=== PATIENT | female | born 1970 | race Caucasian/White ===

== ENCOUNTER 2016-09-26 11:08 | Day surgery (SDC) | payer BC ==
--- NOTE | 2016-09-23 12:43 | P.GSHP ---
History of Present Illness H&P Date: 09/23/16 Chief Complaint: Change in bowel habits Patient seen in the office complaining of increased constipation and intermittent diarrhea. She has family history of colon cancer in her grandfather. Her last colonoscopy was 7 years ago and that was normal. Denies rectal bleeding or melena. Past Medical History Past Medical History: Hypertension, Thyroid Disorder Additional Past Medical History / Comment(s): MIGRAINES History of Any Multi-Drug Resistant Organisms: None Reported Past Surgical History: Orthopedic Surgery Additional Past Surgical History / Comment(s): RIGHT KNEE Past Psychological History: Depression Smoking Status: Current some day smoker Past Alcohol Use History: Occasional Past Drug Use History: None Reported Medications and Allergies Home Medications Medication Instructions Recorded Confirmed Type Citalopram Hydrobromide [CeleXA] 20 mg PO DAILY 02/07/14 02/07/14 History Levothyroxine Sodium [Synthroid] 75 mcg PO DAILY 02/07/14 02/07/14 History Lisinopril [Prinivil] 20 mg PO 02/07/14 02/07/14 History Allergies Allergy/AdvReac Type Severity Reaction Status Date / Time levofloxacin [From Levaquin] Allergy Unknown Verified 02/07/14 17:27 Surgical - Exam Physical exam: General: Well-developed, well-nourished HEENT: Normocephalic, sclerae nonicteric Abdomen: Nontender, nondistended Extremities: No edema Neuro: Alert and oriented Assessment and Plan (1) Change in bowel habits Narrative/Plan: Will proceed with colonoscopy on 09/26. Risks of bleeding, infection, perforation discussed. Patient understands and wishes to proceed. Status: Acute
[2016-09-25 11:28] VITALS: BMI 28.7
[~2016-09-26 11:08] MED LIST: LACTATED RINGERS 1,000 ML IV SCH
[2016-09-26 11:40] VITALS: TEMP 97.8
[2016-09-26] MEDS ORDERED: MIDAZOLAM 2 MG/2 ML VIAL ONE (12:17)
[2016-09-26] MEDS ORDERED: fentaNYL (PF) 50 MCG/ML 2 ML AMP ONE (12:17)
[2016-09-26] MEDS ORDERED: PROPOFOL 10 MG/ML 20 ML VIAL IV ONE (12:17)
--- NOTE | 2016-09-26 12:42 | P.PCN ---
Date of Procedure: 09/26/16 Preoperative Diagnosis: Postoperative Diagnosis: Procedure(s) Performed: PREOPERATIVE DIAGNOSIS: Change in bowel habits POSTOPERATIVE DIAGNOSIS: Normal exam PROCEDURE: Colonoscopy ANESTHESIA: MAC SURGEON: Roni Donohue M.D. SPECIMENS: None ENDOSCOPIC PROCEDURE: The patient was placed on the endoscopy table in the left decubitus position. The Olympus colonoscope was inserted into the anus and passed under direct visualization to the base of the cecum. The appendiceal orifice was visualized. From that point the scope was slowly withdrawn inspecting all surfaces carefully. There were no neoplastic inflammatory or polypoid lesions throughout the cecum, ascending, transverse, descending, sigmoid and rectum. There was no diverticulosis noted. Digital rectal examination was normal. The patient was taken to the recovery room in stable condition per anesthesia guidelines. RECOMMENDATIONS: Increase fiber. Follow colonoscopy in 10 years Implants: Indications for Procedure: Operative Findings: Description of Procedure:
[2016-09-26 12:59] VITALS: BP 117/80; PULSE 56; RESP 18
== END 2016-09-26 13:21 | disposition home or self-care (01) ==
LOC: ORWHC2ENDO 11:08
PROVIDERS: ATTEND Surgery
DX: R19.7 Diarrhea, unspecified (principal); K59.00 Constipation, unspecified; I10 Essential (primary) hypertension; E07.9 Disorder of thyroid, unspecified; G43.909 Migraine, unspecified, not intractable, without status migrainosus; F17.200 Nicotine dependence, unspecified, uncomplicated; F32.9 Major depressive disorder, single episode, unspecified; Z88.1 Allergy status to other antibiotic agents; Z79.899 Other long term (current) drug therapy; Z80.0 Family history of malignant neoplasm of digestive organs
CPT/HCPCS: 81025; 45378; J2250; J3010; J2704

== ENCOUNTER → 2018-08-03 | Outpatient (CLI) | payer BC ==
--- NOTE | 2018-08-04 11:53 | MM ---
Reason for exam: screening (asymptomatic). Last mammogram was performed 7 years and 8 months ago. Physical Findings: A clinical breast exam by your physician is recommended on an annual basis and results should be correlated with mammographic findings. MG Screening Mammo w CAD Bilateral CC and MLO view(s) were taken. Prior study comparison: December 13, 2010, bilateral digital screening mammo w/CAD. The breast tissue is heterogeneously dense. This may lower the sensitivity of mammography. There is no discrete abnormality. ASSESSMENT: Negative, BI-RAD 1 RECOMMENDATION: Routine screening mammogram of both breasts in 1 year.
== END | disposition home or self-care (01) ==
LOC: RADMAMWWP 16:09
PROVIDERS: ATTEND Obstetrics & Gynecology
DX: Z12.31 Encounter for screening mammogram for malignant neoplasm of breast (principal)
CPT/HCPCS: 77067

== ENCOUNTER 2019-03-03 09:55 | Emergency (ER) | payer OTHER, BC ==
[2019-03-03 09:59] VITALS: RESP 20
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
--- NOTE | 2019-03-03 12:24 | XR ---
Cervical spine HISTORY: Trauma and pain 5 views of the cervical spine Cervical vertebral bodies show preserved height, alignment, and bone mineralization. Disc spaces are maintained. Prevertebral soft tissues are normal. No evident foraminal encroachment. IMPRESSION: No acute fracture or subluxation
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
[2019-03-03] MEDS ORDERED: CYCLOBENZAPRINE 10MG STARTER 3 TAB BTL PO STA (12:32)
[2019-03-03 12:49] VITALS: BP 152/90; PULSE 64; TEMP 97.8
== END 2019-03-03 12:50 | disposition home or self-care (01) ==
LOC: EC 09:55
DX: S16.1XXA Strain of muscle, fascia and tendon at neck level, initial encounter (principal); M25.531 Pain in right wrist; M54.5 Low back pain; F32.9 Major depressive disorder, single episode, unspecified; I10 Essential (primary) hypertension; E07.9 Disorder of thyroid, unspecified; Z79.890 Hormone replacement therapy; Z79.899 Other long term (current) drug therapy; Z88.1 Allergy status to other antibiotic agents; Z98.84 Bariatric surgery status; V43.52XA Car driver injured in collision with other type car in traffic accident, initial encounter; Y92.410 Unspecified street and highway as the place of occurrence of the external cause
CPT/HCPCS: 72050; 72100; 99283

== ENCOUNTER → 2019-06-03 | Outpatient (CLI) | payer BC ==
--- NOTE | 2019-06-03 11:31 | CT ---
EXAMINATION TYPE: CT abdomen pelvis w con DATE OF EXAM: 06/03/2019 COMPARISON: HISTORY: Diverticulitis CT DLP: 795.70 mGycm Automated exposure control for dose reduction was used. CONTRAST: CT scan of the abdomen pelvis is performed with IV Contrast, patient injected with 100 ml mL of Isovu e 300. FINDINGS- LUNG BASES- No significant abnormality is appreciated. LIVER/GB- No gross abnormality is appreciated. PANCREAS- No gross abnormality is seen. SPLEEN- No gross abnormality is seen. ADRENALS- No gross abnormality is seen. KIDNEYS/BLADDER- no hydronephrosis nephrolithiasis or renal mass. BOWEL-post surgical change involving the stomach. Small hiatal hernia suspected. Bowel gas pattern no nspecific with no diagnostic evidence of obstruction LYMPH NODES- No greater than 1cm abdominal or pelvic lymph nodes areappreciated. OSSEOUS STRUCTURES-bilateral spondylolysis of L5 with grade 1 anterolisthesis and severe degenerative disc disease. Small foci of sclerotic densities involving the pelvis likely related to bone island. OTHER- aorta of normal caliber. IMPRESSION- 1. Postoperative change with no acute process.
== END | disposition home or self-care (01) ==
LOC: RADCTMAIN 09:10
PROVIDERS: ATTEND Surgery
DX: K57.32 Diverticulitis of large intestine without perforation or abscess without bleeding (principal); Z88.1 Allergy status to other antibiotic agents; Z98.890 Other specified postprocedural states
CPT/HCPCS: 74177; Q9967

== ENCOUNTER 2019-10-26 08:49 | Emergency (ER) | payer BC, OTHER ==
[2019-10-26 08:57] VITALS: RESP 18
[2019-10-26] MEDS ORDERED: IPRATROPIUM-ALBUTEROL 3 ML NEB INHALATION STA (09:09)
[2019-10-26] MEDS ORDERED: predniSONE 20 MG TAB PO STA (09:09)
[2019-10-26] MEDS ORDERED: diphenhydrAMINE 50 MG CAP PO STA (09:09)
--- NOTE | 2019-10-26 10:10 | XR ---
EXAMINATION TYPE: XR chest 2V DATE OF EXAM: 10/26/2019 COMPARISON: NONE HISTORY: Shortness of breath TECHNIQUE: Frontal and lateral views of the chest are obtained. FINDINGS: There is no focal air space opacity, pleural effusion, or pneumothorax seen. The cardiac silhouette size is within normal limits. The osseous structures are intact. Surgical clips are pres ent in the upper abdomen. IMPRESSION: No acute cardiopulmonary process.
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
[2019-10-26] MEDS ORDERED: SODIUM CHLORIDE 0.9% 1,000 ML IV ONE (10:25)
[2019-10-26 11:16] LABS: Basophils % (A) 1 %; Eosinophils # (A) 0.1 k/uL (0-0.7); Eosinophils % (A) 2 %; HCT 42.5 % (34.0-46.0); HGB 14.2 gm/dL (11.4-16.0); Lymphocytes # (A) 1.5 k/uL (1.0-4.8); Lymphocytes % (A) 21 %; MCH 29.8 pg (25.0-35.0); MCHC 33.4 g/dL (31.0-37.0); MCV 89.1 fL (80.0-100.0); Mean Platelet Volume 7.4; Monocytes # (A) 0.2 k/uL (0-1.0); Monocytes % (A) 3 %; Neutrophils # (A) 5.2 k/uL (1.3-7.7); Neutrophils % (A) 73 %; Platelet Count 174 k/uL (150-450); RBC 4.76 m/uL (3.80-5.40); RDW 13.3 % (11.5-15.5); WBC 7.1 k/uL (3.8-10.6)
[2019-10-26 11:34] LABS: African American GFR (CKD) >90 (>60 ml/min/1.73 sqM); Albumin 4.2 g/dL (3.5-5.0); Anion Gap 5 mmol/L; Blood Urea Nitrogen 11 mg/dL (7-17); Calcium 9.6 mg/dL (8.4-10.2); Carbon Dioxide 28 mmol/L (22-30); Chloride 104 mmol/L (98-107); Glucose 108 mg/dL (74-99); Non-African American GFR(CKD) >90 (>60 ml/min/1.73 sqM); Sodium 137 mmol/L (137-145); Total Bilirubin 0.6 mg/dL (0.2-1.3); Total Protein 6.6 g/dL (6.3-8.2)
[2019-10-26 11:35] LABS: ALT 25 U/L (4-34); AST 31 U/L (14-36); Alkaline Phosphatase 78 U/L (38-126)
[2019-10-26 12:54] VITALS: BP 121/73; PULSE 69; TEMP 98.6
== END 2019-10-26 12:58 | disposition home or self-care (01) ==
LOC: EC 08:49
DX: R06.02 Shortness of breath (principal); R42 Dizziness and giddiness; F41.9 Anxiety disorder, unspecified; F32.9 Major depressive disorder, single episode, unspecified; I10 Essential (primary) hypertension; E07.9 Disorder of thyroid, unspecified; Z79.890 Hormone replacement therapy; Z79.899 Other long term (current) drug therapy; Z88.1 Allergy status to other antibiotic agents; Z77.098 Contact with and (suspected) exposure to other hazardous, chiefly nonmedicinal, chemicals; X58.XXXA Exposure to other specified factors, initial encounter; Y92.59 Other trade areas as the place of occurrence of the external cause; Y99.0 Civilian activity done for income or pay
CPT/HCPCS: 36415; 94640; 93005; 85379; 80053; 84484; 85025; 71046; 99285; 96360; 96361; J7512

== ENCOUNTER 2019-11-02 06:14 | Emergency (ER) | payer BC ==
[2019-11-02] MEDS ORDERED: IPRATROPIUM-ALBUTEROL 3 ML NEB INHALATION STA (06:46)
[2019-11-02 07:44] LABS: Basophils % (A) 1 %; Eosinophils # (A) 0.2 k/uL (0-0.7); Eosinophils % (A) 3 %; HCT 42.9 % (34.0-46.0); Lymphocytes # (A) 1.5 k/uL (1.0-4.8); Lymphocytes % (A) 21 %; MCH 28.9 pg (25.0-35.0); MCHC 32.7 g/dL (31.0-37.0); MCV 88.5 fL (80.0-100.0); Monocytes # (A) 0.4 k/uL (0-1.0); Monocytes % (A) 6 %; Neutrophils % (A) 70 %; Platelet Count 190 k/uL (150-450); RBC 4.85 m/uL (3.80-5.40); RDW 13.3 % (11.5-15.5); WBC 7.2 k/uL (3.8-10.6)
--- NOTE | 2019-11-02 07:51 | ED ---
SOB HPI - General Chief Complaint: Shortness of Breath Stated Complaint: IVETTE Time Seen by Provider: 11/02/19 06:32 Source: patient, RN notes reviewed Mode of arrival: ambulatory Limitations: no limitations - History of Present Illness Initial Comments: This a 49-year-old female presents emergency Department chief complaint of persistent shortness of breath. Patient was seen in emergency department last Thursday after chemical exposure at work causing her to have shortness of breath. Patient states that she was off for the return money to stay. She states her symptoms returned again remained Thursday but never fully resolved. Patient states she does have some tightness or pressure other lungs. She does admit that she has a history of asthma has not use her inhaler she does not have one. She denies any fevers or chills. She states the chemical was removed from her work so she does not know why she is continued to have the shortness of breath. She does have a history of hypothyroidism on Synthroid. Patient denies any fevers or chills no sick contacts no blurred vision she has on-and-off headaches are chronic for her. She states her headaches are not of usual. Denies any dysuria hematuria and no GERD type symptoms denies any nausea vomiting diarrhea constipation - Related Data Home Medications Medication Instructions Recorded Confirmed Citalopram Hydrobromide [CeleXA] 20 mg PO DAILY 02/07/14 11/02/19 Losartan [Cozaar] 50 mg PO QAM 09/25/16 11/02/19 Levothyroxine Sodium [Synthroid] 100 mcg PO DAILY 03/03/19 11/02/19 Multivitamins, Thera [Multivitamin 1 tab PO DAILY 10/26/19 11/02/19 (formulary)] Allergies Allergy/AdvReac Type Severity Reaction Status Date / Time levofloxacin [From Levaquin] Allergy Rash/Hives Verified 11/02/19 08:43 Review of Systems ROS Statement: Those systems with pertinent positive or pertinent negative responses have been documented in the HPI. ROS Other: All systems not noted in ROS Statement are negative. Past Medical History Past Medical History: Hypertension, Thyroid Disorder Additional Past Medical History / Comment(s): MIGRAINES, PAST HX ASTHMA History of Any Multi-Drug Resistant Organisms: None Reported Past Surgical History: Bariatric Surgery, Orthopedic Surgery, Uterine Ablation Additional Past Surgical History / Comment(s): RIGHT KNEE, SLEEVE GASTRECTOMY Past Anesthesia/Blood Transfusion Reactions: No Reported Reaction Past Psychological History: Anxiety, Depression Smoking Status: Never smoker Past Alcohol Use History: Rare Past Drug Use History: None Reported - Past Family History Sister(s) Family Medical History: Deep Vein Thrombosis (DVT) General Exam Limitations: no limitations General appearance: alert, in no apparent distress Head exam: Present: atraumatic, normocephalic, normal inspection Eye exam: Present: normal appearance, PERRL, EOMI. Absent: scleral icterus, conjunctival injection, periorbital swelling ENT exam: Present: normal exam, normal oropharynx, mucous membranes moist, TM's normal bilaterally Neck exam: Present: normal inspection, full ROM. Absent: tenderness, meningismus, lymphadenopathy Respiratory exam: Present: normal lung sounds bilaterally. Absent: respiratory distress, wheezes, rales, rhonchi, stridor Cardiovascular Exam: Present: regular rate, normal rhythm, normal heart sounds. Absent: systolic murmur, diastolic murmur, rubs, gallop, clicks GI/Abdominal exam: Present: soft, normal bowel sounds. Absent: distended, tenderness, guarding, rebound, rigid Neurological exam: Present: alert, oriented X3 Skin exam: Present: warm, dry, intact, normal color. Absent: rash Course Vital Signs 11/02/19 11/02/19 11/02/19 06:20 07:30 07:40 Temperature 98.3 F Pulse Rate 70 56 L 69 Respiratory 18 Rate Blood Pressure 136/91 O2 Sat by Pulse 96 Oximetry 11/02/19 08:00 Temperature Pulse Rate 64 Respiratory 18 Rate Blood Pressure 97/46 O2 Sat by Pulse 96 Oximetry Medical Decision Making - Medical Decision Making 49-year-old female presented for ongoing dyspnea. Patient had prior workup and compared to work up today with no acute findings. Patient's case discussed with Dr. Pang for possible admission he recommends following up in office tomorrow at her scheduled appointment. Patient is provided albuterol inhaler. She states this does help with her asthma. Patient had an echocardiogram pending results. Return parameters were discussed. Patient agrees that she will wants to go home at this point. - Lab Data Result diagrams: 11/02/19 06:55 11/02/19 06:55 Lab Results 11/02/19 11/02/19 11/02/19 Range/Units 06:55 06:55 06:55 WBC 7.2 (3.8-10.6) k/uL RBC 4.85 (3.80-5.40) m/uL Hgb 14.0 (11.4-16.0) gm/dL Hct 42.9 (34.0-46.0) % MCV 88.5 (80.0-100.0) fL MCH 28.9 (25.0-35.0) pg MCHC 32.7 (31.0-37.0) g/dL RDW 13.3 (11.5-15.5) % Plt Count 190 (150-450) k/uL Neutrophils % 70 % Lymphocytes % 21 % Monocytes % 6 % Eosinophils % 3 % Basophils % 1 % Neutrophils # 5.0 (1.3-7.7) k/uL Lymphocytes # 1.5 (1.0-4.8) k/uL Monocytes # 0.4 (0-1.0) k/uL Eosinophils # 0.2 (0-0.7) k/uL Basophils # 0.0 (0-0.2) k/uL PT (9.0-12.0) sec INR (<1.2) APTT (22.0-30.0) sec D-Dimer (<0.60) mg/L FEU Sodium 137 (137-145) mmol/L Potassium 3.7 (3.5-5.1) mmol/L Chloride 105 (98-107) mmol/L Carbon Dioxide 26 (22-30) mmol/L Anion Gap 6 mmol/L BUN 12 (7-17) mg/dL Creatinine 0.52 (0.52-1.04) mg/dL Est GFR (CKD-EPI)AfAm >90 (>60 ml/min/1.73 sqM) Est GFR (CKD-EPI)NonAf >90 (>60 ml/min/1.73 sqM) Glucose 90 (74-99) mg/dL Plasma Lactic Acid Osman (0.7-2.0) mmol/L Calcium 9.0 (8.4-10.2) mg/dL Magnesium 2.2 (1.6-2.3) mg/dL Total Bilirubin 0.8 (0.2-1.3) mg/dL AST 21 (14-36) U/L ALT 18 (4-34) U/L Alkaline Phosphatase 81 (38-126) U/L Troponin I (0.000-0.034) ng/mL NT-Pro-B Natriuret Pep 35 pg/mL Total Protein 5.9 L (6.3-8.2) g/dL Albumin 3.9 (3.5-5.0) g/dL 11/02/19 11/02/19 11/02/19 Range/Units 06:55 06:55 06:55 WBC (3.8-10.6) k/uL RBC (3.80-5.40) m/uL Hgb (11.4-16.0) gm/dL Hct (34.0-46.0) % MCV (80.0-100.0) fL MCH (25.0-35.0) pg MCHC (31.0-37.0) g/dL RDW (11.5-15.5) % Plt Count (150-450) k/uL Neutrophils % % Lymphocytes % % Monocytes % % Eosinophils % % Basophils % % Neutrophils # (1.3-7.7) k/uL Lymphocytes # (1.0-4.8) k/uL Monocytes # (0-1.0) k/uL Eosinophils # (0-0.7) k/uL Basophils # (0-0.2) k/uL PT 9.8 (9.0-12.0) sec INR 0.9 (<1.2) APTT 24.6 (22.0-30.0) sec D-Dimer 0.26 (<0.60) mg/L FEU Sodium (137-145) mmol/L Potassium (3.5-5.1) mmol/L Chloride (98-107) mmol/L Carbon Dioxide (22-30) mmol/L Anion Gap mmol/L BUN (7-17) mg/dL Creatinine (0.52-1.04) mg/dL Est GFR (CKD-EPI)AfAm (>60 ml/min/1.73 sqM) Est GFR (CKD-EPI)NonAf (>60 ml/min/1.73 sqM) Glucose (74-99) mg/dL Plasma Lactic Acid Osman 0.8 (0.7-2.0) mmol/L Calcium (8.4-10.2) mg/dL Magnesium (1.6-2.3) mg/dL Total Bilirubin (0.2-1.3) mg/dL AST (14-36) U/L ALT (4-34) U/L Alkaline Phosphatase (38-126) U/L Troponin I <0.012 (0.000-0.034) ng/mL NT-Pro-B Natriuret Pep pg/mL Total Protein (6.3-8.2) g/dL Albumin (3.5-5.0) g/dL Disposition Clinical Impression: Shortness of breath, Chemical exposure Disposition: HOME SELF-CARE Condition: Stable Additional Instructions: Please return to the Emergency Department if symptoms worsen or any other co ncerns. Is patient prescribed a controlled substance at d/c from ED?: No Referrals: Uriah Pang DO [Primary Care Provider] - 1-2 days Time of Disposition: 12:26
[2019-11-02 07:55] LABS: ALT 18 U/L (4-34); AST 21 U/L (14-36); African American GFR (CKD) >90 (>60 ml/min/1.73 sqM); Albumin 3.9 g/dL (3.5-5.0); Alkaline Phosphatase 81 U/L (38-126); Anion Gap 6 mmol/L; Blood Urea Nitrogen 12 mg/dL (7-17); Carbon Dioxide 26 mmol/L (22-30); Chloride 105 mmol/L (98-107); Glucose 90 mg/dL (74-99); Magnesium 2.2 mg/dL (1.6-2.3); Non-African American GFR(CKD) >90 (>60 ml/min/1.73 sqM); Potassium 3.7 mmol/L (3.5-5.1); Sodium 137 mmol/L (137-145); Total Bilirubin 0.8 mg/dL (0.2-1.3); Total Protein 5.9 g/dL (6.3-8.2)
[2019-11-02 08:09] LABS: D-Dimer 0.26 mg/L FEU (<0.60); INR 0.9 (<1.2); Partial Thromboplastin Time 24.6 sec (22.0-30.0); Prothrombin Time 9.8 sec (9.0-12.0)
--- NOTE | 2019-11-02 10:04 | XR ---
EXAMINATION TYPE: XR chest 2V DATE OF EXAM: 11/02/2019 COMPARISON: Prior chest x-ray 10/26/2019 HISTORY: Shortness of breath, asthma TECHNIQUE: Frontal and lateral views of the chest are obtained. FINDINGS: There is no focal air space opacity, pleural effusion, or pneumothorax seen. The cardiac silhouette size is within normal limits. There are overlying cardiac leads. The osseous structures a re intact. Surgical clips overlying gastroesophageal junction level. IMPRESSION: No acute cardiopulmonary process.
--- NOTE | 2019-11-02 12:43 | ECHOF ---
Referral Reason:CP, SOB MEASUREMENTS -------- HEIGHT: 157.5 cm WEIGHT: 78.0 kg BP: 101/58 RVIDd: 3.3 cm (< 3.3) IVSd: 1.2 cm (0.6 - 1.1) LVIDd: 3.6 cm (3.9 - 5.3) LVPWd: 1.1 cm (0.6 - 1.1) IVSs: 1.7 cm LVIDs: 2.5 cm LVPWs: 1.6 cm LA Diam: 3.7 cm (2.7 - 3.8) LAESV Index (A-L): 23.80 ml/m Ao Diam: 2.6 cm (2.0 - 3.7) AV Cusp: 1.8 cm (1.5 - 2.6) MV EXCURSION: 13.666 mm (> 18.000) MV EF SLOPE: 66 mm/s (70 - 150) EPSS: 0.2 cm MV E Jarrett: 1.11 m/s MV DecT: 220 ms MV A Jarrett: 0.81 m/s MV E/A Ratio: 1.36 RAP: 5.00 mmHg RVSP: 21.98 mmHg FINDINGS -------- Sinus rhythm. This was a technically good study. The left ventricular size is normal. There is borderline concentric left ventricular hypertrophy. Overall left ventricular systolic function is normal with, an EF between 55 - 60 %. The right ventricle is normal in size. Normal LA size by volume 22+/-6 ml/m2. The right atrial size is normal. Interatrial and interventricular septum intact. The aortic valve is trileaflet, and appears structurally normal. No aortic stenosis or regurgitation. The mitral valve is normal. There is trace to mild mitral regurgitation. The tricuspid valve appears structurally normal. Mild tricuspid regurgitation present. Right vent ricular systolic pressure is normal at < 35 mmHg. There is no pulmonic regurgitation present. The aortic root size is normal. Normal inferior vena cava with normal inspiratory collapse consistent with estimated right atrial pre ssure of 5 mmHg. There is no pericardial effusion. CONCLUSIONS -------- 1. There is borderline concentric left ventricular hypertrophy. 2. Overall left ventricular systolic function is normal with, an EF between 55 - 60 %. 3. Normal LA size by volume 22+/-6 ml/m2. 4. The aortic valve is trileaflet, and appears structurally normal. No aortic stenosis or regurgitati on. 5. There is trace to mild mitral regurgitation. 6. Mild tricuspid regurgitation present. 7. There is no pulmonic regurgitation present. 8. There is no pericardial effusion. SENIOR ELECTRICAL PROJECT MANAGER: Maddison Mejia RDCS
[2019-11-04 09:15] VITALS: BP 97/46; PULSE 64; RESP 18; TEMP 98.3
== END 2019-11-02 11:25 | disposition home or self-care (01) ==
LOC: EC 06:14
DX: Z77.098 Contact with and (suspected) exposure to other hazardous, chiefly nonmedicinal, chemicals (principal); R06.02 Shortness of breath; R51 Headache; I10 Essential (primary) hypertension; E07.9 Disorder of thyroid, unspecified; F41.9 Anxiety disorder, unspecified; F32.9 Major depressive disorder, single episode, unspecified; Z87.09 Personal history of other diseases of the respiratory system; Z86.69 Personal history of other diseases of the nervous system and sense organs; Z79.890 Hormone replacement therapy; Z79.899 Other long term (current) drug therapy; Z88.1 Allergy status to other antibiotic agents
CPT/HCPCS: 36415; 71046; 80053; 83605; 83735; 83880; 84484; 85025; 85379; 85610; 85730; 93005; 93306; 94640; 99285

== ENCOUNTER 2020-04-26 02:04 | Emergency (ER) | payer BC ==
[2020-04-26 02:14] VITALS: PULSE 60; RESP 20; TEMP 98.3
[2020-04-26] MEDS ORDERED: KETOROLAC 15 MG/ML 1 ML VIAL IM STA (02:39)
[2020-04-26] MEDS ORDERED: Acetaminophen-Codeine 300-30mg TAB PO STA (02:39)
[2020-04-26] MEDS ORDERED: dexAMETHasone 4 MG TAB PO STA (02:39)
[2020-04-26] MEDS ORDERED: ACET/COD 300 MG/30 MG STARTER PACK 6 TAB BTL PO STA (02:39)
--- NOTE | 2020-04-26 02:39 | ED ---
Back Pain HPI - General Chief Complaint: Neuro Symptoms/Deficit Stated Complaint: Leg Pain, [facility] Time Seen by Provider: 04/26/20 02:36 Source: patient, RN notes reviewed, old records reviewed Limitations: no limitations - History of Present Illness Initial Comments: This is a 49-year-old female 1 week of back injury coming in with some pain down her left leg back of her left leg worse when she walks. No other somatic injury has been noted since 0 injury a week ago. He was ability twisting injury is work the past week pain down her left leg just started last night. No modifying factors to improve the pain. No loss of bowel or bladder, no other neurological symptoms. Just numbness and sharp pain down the left leg MD Complaint: back pain, back injury -: week(s) Similar Symptoms Previously: No Place: work Severity: moderate Severity scale (1-10): 4 Quality: sharp Consistency: constant Improves With: none, immobilization Worsens With: movement Context: while lifting, turning/twisting Associated Symptoms: denies other symptoms - Related Data Home Medications Medication Instructions Recorded Confirmed Citalopram Hydrobromide [CeleXA] 20 mg PO DAILY 02/07/14 11/02/19 Losartan [Cozaar] 50 mg PO QAM 09/25/16 11/02/19 Levothyroxine Sodium [Synthroid] 100 mcg PO DAILY 03/03/19 11/02/19 Multivitamins, Thera [Multivitamin 1 tab PO DAILY 10/26/19 11/02/19 (formulary)] Allergies Allergy/AdvReac Type Severity Reaction Status Date / Time levofloxacin [From Levaquin] Allergy Rash/Hives Verified 04/26/20 02:14 Review of Systems ROS Statement: Those systems with pertinent positive or pertinent negative responses have been documented in the HPI. ROS Other: All systems not noted in ROS Statement are negative. Past Medical History Past Medical History: Hypertension, Thyroid Disorder Additional Past Medical History / Comment(s): MIGRAINES, PAST HX ASTHMA History of Any Multi-Drug Resistant Organisms: None Reported Past Surgical History: Bariatric Surgery, Orthopedic Surgery, Uterine Ablation Additional Past Surgical History / Comment(s): RIGHT KNEE, SLEEVE GASTRECTOMY Past Anesthesia/Blood Transfusion Reactions: No Reported Reaction Past Psychological History: Anxiety, Depression Smoking Status: Never smoker Past Alcohol Use History: Rare Past Drug Use History: None Reported - Past Family History Sister(s) Family Medical History: Deep Vein Thrombosis (DVT) General Exam Limitations: no limitations General appearance: alert, in no apparent distress Head exam: Present: atraumatic, normocephalic, normal inspection Eye exam: Present: normal appearance, PERRL, EOMI. Absent: scleral icterus, conjunctival injection, periorbital swelling ENT exam: Present: normal exam, mucous membranes moist Neck exam: Present: normal inspection. Absent: tenderness, meningismus, lymphadenopathy Respiratory exam: Present: normal lung sounds bilaterally. Absent: respiratory distress, wheezes, rales, rhonchi, stridor Cardiovascular Exam: Present: regular rate, normal rhythm, normal heart sounds. Absent: systolic murmur, diastolic murmur, rubs, gallop, clicks GI/Abdominal exam: Present: soft, normal bowel sounds. Absent: distended, tenderness, guarding, rebound, rigid Extremities exam: Present: normal inspection, full ROM, normal capillary refill. Absent: tenderness, pedal edema, joint swelling, calf tenderness Back exam: Present: normal inspection Neurological exam: Present: alert, oriented X3, CN II-XII intact Psychiatric exam: Present: normal affect, normal mood Skin exam: Present: warm, dry, intact, normal color. Absent: rash Course Vital Signs 04/26/20 02:08 Temperature 98.3 F Pulse Rate 60 Respiratory 20 Rate Blood Pressure 116/71 O2 Sat by Pulse 98 Oximetry - Reevaluation(s) Reevaluation #1: 04/26/20 03:35 Medical records reviewed Reevaluation #2: 04/26/20 03:35 Patient is able to ambulate Reevaluation #3: 04/26/20 03:35 Patient is significantly improved pain here in the ER Reevaluation #4: 04/26/20 03:35 Patient informed results okay for discharge Medical Decision Making - Medical Decision Making 49 female DF for evaluation of back pain back pain down left leg lumbar radiculopathy with no neurological focal deficit. Patient can be discharged home - Radiology Data Radiology results: report reviewed (CT lumbosacral spine negative for genetic injury), image reviewed Disposition Clinical Impression: Lumbar radicular pain, Back pain Disposition: HOME SELF-CARE Condition: Good Instructions (If sedation given, give patient instructions): Lumbar Radiculopathy (ED) Is patient prescribed a controlled substance at d/c from ED?: No Referrals: Uriah Pang DO [Primary Care Provider] - 1-2 days
--- NOTE | 2020-04-26 03:14 | CT ---
EXAM: CT Lumbar Spine Without Intravenous Contrast CLINICAL HISTORY: ITS.REASON CT Reason: pain TECHNIQUE: Axial computed tomography images of the lumbar spine without intravenous contrast. CTDI is 25.684 mGy and DLP is 998.5 mGy-cm. This CT exam was performed using one or more of the following dose reduction techniques: automated exposure control, adjustment of the mA and/or kV according to patient size, and/or use of iterative reconstruction technique. COMPARISON: No relevant prior studies available. FINDINGS: Vertebrae: No acute fracture or traumatic malalignment. Grade 2 anterolisthesis of L5 on S1 secondary to bilateral L5 pars defect. Discs/spinal canal/neural foramina: No acute findings. No significant spinal canal stenosis. No significant neuroforaminal stenosis. Soft tissues: Unremarkable. IMPRESSION: No acute fracture or traumatic malalignment.
--- NOTE | 2020-04-26 03:16 | CT ---
EXAM: CT Sacrum Spine Without Intravenous Contrast CLINICAL HISTORY: ITS.REASON CT Reason: pain TECHNIQUE: Axial computed tomography images of the sacrum spine without intravenous contrast. CTDI is 25.684 mGy and DLP is 998.5 mGy-cm. This CT exam was performed using one or more of the following dose reduction techniques: automated exposure control, adjustment of the mA and/or kV according to patient size, and/or use of iterative reconstruction technique. COMPARISON: No relevant prior studies available. FINDINGS: Vertebrae: Unremarkable. No acute fracture or traumatic malalignment. Discs/spinal canal/neural foramina: No acute findings. No significant spinal canal stenosis. No significant neuroforaminal stenosis. Soft tissues: Unremarkable. IMPRESSION: Normal sacrum spine CT.
[2020-04-26 03:48] VITALS: BP 106/64
== END 2020-04-26 03:49 | disposition home or self-care (01) ==
LOC: EC 02:04
DX: M54.16 Radiculopathy, lumbar region (principal); I10 Essential (primary) hypertension; E07.9 Disorder of thyroid, unspecified; F41.9 Anxiety disorder, unspecified; F32.9 Major depressive disorder, single episode, unspecified; Z79.899 Other long term (current) drug therapy; Z79.890 Hormone replacement therapy; Z88.1 Allergy status to other antibiotic agents
CPT/HCPCS: 72131; 72192; 99284; 96372; J8540; J1885

== ENCOUNTER → 2020-11-02 | Outpatient (CLI) | payer SELFPAY | END | disposition home or self-care (01) | DX: M25.552 Pain in left hip (principal) ==

== ENCOUNTER → 2021-02-27 | Outpatient (CLI) | payer BC ==
--- NOTE | 2021-02-27 10:17 | XR ---
EXAMINATION TYPE: XR cervical spine comp DATE OF EXAM: 02/27/2021 COMPARISON: 03/03/2019 HISTORY: Cervical radiculopathy pain TECHNIQUE: 5 view cervical spine including flexion and extension views FINDINGS: Prevertebral space is normal. There is straightening of the cervical spine. Subtle kyphosis may be centered in C4. Disc heights appear preserved. Some mild posterior disc space narrowing C5-6 may be present. Posterior spinal lamellar line is intact. The odontoid appears unremarkable. Additional flexion and extension views were obtained. Vertebral body alignment appears preserved with flexion and extension. No subluxation is evident. IMPRESSION: 1. Mild degenerative disc changes. 2. Preservation of alignment with neutral flexion and extension views. There may be some straightenin g or minimal kyphosis centered at C4 neutral position.
== END | disposition home or self-care (01) ==
LOC: RADXRMAIN 09:21
PROVIDERS: ATTEND Neurological Surgery
DX: M50.30 Other cervical disc degeneration, unspecified cervical region (principal)
CPT/HCPCS: 72050

== ENCOUNTER → 2021-12-26 | Outpatient (CLI) | payer BC ==
[2021-12-26 18:26] LABS: C Reactive Protein <0.30 mg/dL (0.00-0.80)
[2021-12-26 18:44] LABS: Rheumatoid Factor, Qnt <10 IU/mL (0-15)
[2021-12-26 20:19] LABS: Anti-DNA, DS unit <1.0 IU/mL; Anti-Smith Ab Interp NEGATIVE (NEGATIVE); Cyclic Citrull Pep IgG Unit <0.5 U/mL; Cyclic Citrullinated Pep IgG NEGATIVE (NEGATIVE); DNA Double-Stranded NEGATIVE (NEGATIVE); JO-1 IgG Antibody <0.2 AI; Scleroderma SC-70 Ab <0.2 AI
[2021-12-27 13:22] LABS: Histone Antibody 0.7 UNITS (<1.0)
== END | disposition home or self-care (01) ==
LOC: LABWHC1 12:30
PROVIDERS: ATTEND Psychiatry & Neurology Neurology
DX: M25.50 Pain in unspecified joint (principal); I69.911 Memory deficit following unspecified cerebrovascular disease; E55.9 Vitamin D deficiency, unspecified; E53.8 Deficiency of other specified B group vitamins
CPT/HCPCS: 36415; 82306; 82607; 83516; 84439; 84443; 84481; 86038; 86140; 86200; 86225; 86235; 86431

== ENCOUNTER → 2022-02-14 | Outpatient (CLI) | payer OTHER ==
--- NOTE | 2022-02-14 10:51 | XR ---
EXAMINATION TYPE: XR lumbar spine 7 views with bend/flex DATE OF EXAM: 02/14/2022 Comparison: 03/03/[address] 04/26/2020. Clinical History: 51-year-old female pain, M43.16 R/O Spondylolisthesis Findings: 5 lumbar type vertebral bodies. Redemonstrated small L5 posterior fusion defect. There is a grade 2, nearly grade 3 anterolisthesis at L5-S1 with associated severe degenerative disc disease. Remaining a lignment is maintained. Vertebral body heights are preserved. Facet arthropathy mid to lower lumbar s pine. No dynamic subluxations on flexion or extension. Impression: 1. Grade 2, nearly grade 3 anterolisthesis at L5-S1 with associated severe degenerative disc disease. The degree of anterolisthesis has increased compared to 2019. No dynamic subluxation on flexion or e xtension. 2. Hypertrophic facet arthropathy mid to lower lumbar spine. 3. Unable to clearly delineate the pars interarticularis regions on the oblique views due to the degr ee of subluxation. We note that the patient's 04/26/2020 CT did show the presence of bilateral L5 par s defects.
== END | disposition home or self-care (01) ==
LOC: RADXRMAIN 10:04
PROVIDERS: ATTEND Physical Medicine & Rehabilitation
DX: M51.36 Other intervertebral disc degeneration, lumbar region (principal); M12.88 Other specific arthropathies, not elsewhere classified, other specified site
CPT/HCPCS: 72114

== ENCOUNTER → 2023-03-23 | Outpatient (CLI) | payer BC ==
--- NOTE | 2023-03-23 14:01 | CT ---
EXAMINATION TYPE: CT lumbar spine wo con DATE OF EXAM: 03/23/2023 1:14 PM COMPARISON: CT April 26, 2020 HISTORY: low back pain CT DLP: 684.9 mGycm Automated exposure control for dose reduction was used. Unenhanced CT of the lumbar spine was performed. Bone and soft tissue window settings are submitted as well as coronal and sagittal reconstructions. There are 5 lumbar type vertebra are redemonstrated. Persistent bilateral pars defect L5 level with g rade 2 anterolisthesis L5 on S1 measured approximately 11 mm long posterior vertebral body margin sag ittal image 32. Advanced disc space narrowing with endplate sclerosis at this level and vacuum disc p henomenon is redemonstrated. Vertebral body heights and disc space heights otherwise are preserved. S reza canal is maintained. No large posterior disc herniations are seen. Facet arthropathy in the low er lumbar spine is appreciated on axial images. There is redemonstration of surgical change near the gastroesophageal junction extending into the proximal stomach better seen on current study likely pro duct of gastric sleeve surgery with small hiatal hernia. IMPRESSION: Stable grade 2 anterolisthesis L5 on S1 and associated degenerative change.
--- NOTE | 2023-03-23 14:41 | MR ---
EXAMINATION TYPE: MR lumbar spine wo con DATE OF EXAM: 03/23/2023 COMPARISON: CT lumbar spine earlier today HISTORY: Low back pain into lawson lower extremities x 3 years TECHNIQUE: Multiplanar, multisequence imaging of the lumbar spine is performed without IV contrast. FINDINGS: Sagittal images of the lumbar spine show vertebral body heights to remain satisfactory. Ant erolisthesis L5 on S1 is redemonstrated measuring up to 12 mm sagittal image 9. There is multilevel d isc desiccation. There is moderate to advanced disc space narrowing with vacuum disc phenomenon and h eterogeneous Modic type I endplate changes at L5-S1 level. The conus medullaris is normal in positio n and signal ending at T12-L1 disc space level. Axial images show T12-L1 through L3-L4 levels appear within normal limits. Axial images at L4-L5 leve l show mild/moderate left-sided facet arthropathy. Axial images at L5-S1 levels with spondylolisthesis with moderate facet arthropathy bilaterally. Spin al canal is preserved. No large disc herniation is seen. There is mild to moderate left greater than right bilateral neural foraminal narrowing due to spondylolisthesis. Paraspinal muscle bulk is maintained. IMPRESSION: Bilateral pars defect L5 level seen better on CT. Grade 2 anterolisthesis L5 on S1 redemo nstrated.
== END | disposition home or self-care (01) ==
LOC: RADCTMAIN 12:54
PROVIDERS: ATTEND Orthopaedic Surgery
DX: M43.17 Spondylolisthesis, lumbosacral region (principal); M47.816 Spondylosis without myelopathy or radiculopathy, lumbar region
CPT/HCPCS: 72131; 72148

== ENCOUNTER → 2023-06-03 | Outpatient (CLI) | payer BC | END | disposition home or self-care (01) | LOC: LABPAT 10:27 | PROVIDERS: ATTEND Orthopaedic Surgery | DX: Z01.812 Encounter for preprocedural laboratory examination (principal); Z22.322 Carrier or suspected carrier of Methicillin resistant Staphylococcus aureus; M43.16 Spondylolisthesis, lumbar region; M48.061 Spinal stenosis, lumbar region without neurogenic claudication | CPT/HCPCS: 86850; 86900; 86901; 87070 ==

== ENCOUNTER 2023-06-09 09:07 | Observation (INO) | payer BC ==
[2023-06-05 16:33] VITALS: BMI 29.2
--- NOTE | 2023-06-09 06:26 | P.HPOR ---
History of Present Illness H&P Date: 06/03/23 .D:Date: 06/03/23 : 10:04am .T:Title: [facility] History and Physical Date of :[birth year] [id number]: NKDA Age: 53 year Height: 5'2" Weight: 160 lbs BP:132/78 BMI: 29.26 kg/m2 Occupation: Unemployed VAS: 7 Hand:Right IMPRESSION: It was my pleasure to have seen and examined Analy. I reviewed the patient's clinical syndrome, physical findings, and imaging studies during the appointment today. It is my impression that the patient has a diagnosis of. 1. Grade II spondylolisthesis of L5 on S1 2. L5-S1 spondylosis with stenosis 3. Bilateral lower extremity radiculopathy 4. Bilateral lower extremity weakness I outlined the natural course history without intervention and various interventional options. Spine Surgery Risk Review Ms. Alonzo is presenting for evaluation of low back and bilateral lower extremity pain, bilateral lower extremity numbness, tingling, and weakness. It was my pleasure to have seen and examined Ms. Alonzo. In our visit today we have had a chance to go over subjective complaints, physical examination findings and treatments including the natural course history without intervention and various interventional options. The patients imaging demonstrates: XRay Lumbar Multiview (AP, Lateral, Flexion, Extension) with AP pelvis; 5 views taken at [facility] on 03/13/23 of Lumbar Spine: Grade 2 spondylolisthesis of L5 on S1 is noted which is unstable through flexion extension. There is bilateral pars defects due to spondylolysis at L5-S1. Bilateral foraminal stenosis is noted. There is disc desiccation at L5-S1 as well secondary to the collapse as well as the spondylolysis. Facet arthropathy is noted at L5-S1 which is fairly severe due to the pars elongation and pars defects. No other lesions noted at this time. On physical exam, Ms. Alonzo demonstrates: A sharp, stabbing pain throughout the low back that radiates down into the bilateral lower extremities. The patient states that her lower extremity pain is associated with numbness and tingling bilaterally. The patient notes that er symptoms have progressively worsened over the last 3 to 4 months. The patient states that her symptoms worsen after all activity. She reports experiencing moderate to severe sleep disturbances related to her ongoing pain and associated symptoms. I have explained to the patient that as their condition progresses it will cause further neurological deficits and eventual paralysis. Based on the patients imaging, physical exam, and the rapid progression and disabling nature of their symptoms, at this time I recommend surgery in the form of a: L4-S1 decompression and fusion. I discussed the risk and benefits of this procedure at length with Ms. Alonzo. The patient agreed to considered pursuing the procedure above mentioned. Prior to surgery, she should follow up with her PCP (Cardio, ID, IM etc) for clearance. Questions were invited and answered, and the patient wishes to proceed as outlined below. Currently, I am recommendin.L4-S1 decompression and fusion 2.Review of surgical risks and benefits as well as an educational packet on the proposed surgical procedure. Risks: All surgical procedures come with inherent risks, including those related to positioning, anesthesia, intraoperative findings, and postoperative complications. It is important to understand that surgery does not come with any guarantee of a successful outcome as complications and adverse events are al ways possible. The patient was given a handout in office today discussing the surgical procedure and risks associated with the intervention, both of which were discussed with the patient. These risks include but are not limited to the following: * Experiencing same, different or even worse symptoms in back, neck, arms, or legs compared to before surgery. Requiring further surgery or other forms of treatment presently or at some time in the future at same or other levels of the intended spine surgery. On an extreme but fortunately relatively rare basis severe complication such as blindness, stroke, heart attack, temporary and/or permanent nerve injury, paralysis, coma, or may occur, sometimes without known explanation. Surgical complications may include but are not limited to risk of infection, fluid accumulation in the surgical dissection site, including a seroma or hematoma, that requires additional surgery, wound drainage, bleeding, new numbness or weakness, vision changes/loss, spinal fluid leakage, non-healing and/or infected incision, headaches, difficulty or inability to swallow, hoarseness, hemopneumothorax, pneumothorax, impotence, retrograde ejaculation, vaginal dryness; injury to nerves, spinal cord, blood vessels, lymphatics or other vital organs (i.e., bowel injury, injury to the great vessels); heterotopic bone formation; complications related to the hardware such as screws, rods, cages including misplaced hardware, device failure, instrumentation at the wrong spine level, hardware fracture/breakage, or hardware loosening; vertebral failure of the spinal column above or below the newly placed hardware; retained surgical instrumentations or devices and the need for further surgery. * Medical risks of the planned spine surgery include but are not limited to generalized Infections to the whole body or local areas outside of the surgical site (sepsis), heart attack, bleeding, anaphylaxis, meningitis, seizure, epilepsy, hearing loss, burn potts, laceration of the head or other areas of the body, bruising, hypersensitivity of the skin, bladder over distension; allergic reaction; shoulder injury related to positioning; fat, blood and air clots to other areas of the body like heart, lungs, brain; failure of internal organs such as lungs, kidneys, liver and excessive bleeding. If blood transfusions are necessary, note that transfusions may cause intolerance reactions such as anaphylaxis or other complex reactions. Despite best efforts, the results of spine surgery might not heal in terms of bone, soft tissues such as skin, fascia, ligaments, and joints. Additionally, in order to achieve best possible results, spine surgery may be carried out beyond the initially planned levels and involve decompression, fusion including insertion of hardware at levels other than the original intended area of surgical interest change some portions of the procedure in order to ensure the best possible outcomes. With spine surgery and spinal fusion, there are different off label uses of instrumentation (devices, implants and hardware) as well as biological substances (bone morphogenic proteins, demineralized bone matrix) as well as usi ng extra bone from allograft sources (i.e. cadaver bone) or autograft (iliac crest bone, ribs, or the spine itself). The patient has been given information about these practices and their inherent risks and benefits. [facility] is an educational center that serves as a training facility for neurosurgical and orthopedic STEAM TABLE ASSOCIATE and Nursing students. Physician assistants are medically trained surgical providers who function in the outpatient, inpatient, and operating room setting under the direct supervision of the attending surgeon. [facility] has multiple operating rooms with single and overlapping rooms running daily. They currently function under the required guidelines as produced by the [facility] with regards to the overlapping rooms and will continue to comply with changes to this policy as they occur. The requirements include and are complied with as follows: (1) the critical portions of the overlapping rooms will not occur at the same time, (2) the attending physician will be physically present during the critical portions of the procedure and immediately available during the entire case, and (3) a back-up attending is designated should the primary attending not be immediately available. The patient has had a chance to review all the listed information, has been given print outs detailing this information, and has had all his/her questions answered to their satisfaction. It was my pleasure to have seen and examined Ms. Alonzo. In our visit today we have had a chance to go over my understanding of our patient's current condition, the natural course history without intervention and various interventional options. Questions were invited and answered, and the patient wishes to proceed as outlined above. I have seen and examined the patient for 25 minutes and we have spent more than 50% of the time in repeat and detailed counseling about the patient's condition, its natural course history with out and as much as can be predicted with surgery and re-review of various surgical treatment options. In conclusion, Ms. Alonzo requested we proceed with the above suggested surgery and are willing to accept risks and limitations of the suggested surgery as nature of the disease process and our best attempts at treatment for the condition. Thank you again for allowing us to be part of your patient's care. Please don't hesitate to contact me if you have any further questions. Physical Exam: -Patient is alert and oriented 3 appears well-nourished well-hydrated is in no acute distress. They do not appear septic. -There is TTP lumbar spine step-off L5-S1 -Upper extremities show [5] out of 5 strength in all major muscle groups. -Lower extremities with 4 out of 5 strength in all major muscle groups -There is [FROM] that is [painless] of the b/l UE and LE in all major joints. straight leg raise is positive bilaterally -They are intact to light touch sensation in C5 to T1 and L2 to S1 nerve distribution. -DTR [2]/4 all upper and lower extremities -Patient has palpable distal pulses all 4 ext -Compartments are soft and compressible. -Patient shows a negative [employer] [-Neg Hoffmans b/l] [-Neg Clonus b/l] [-Neg babinski b/l] Cranial nerves II through XII are grossly intact. Follow-up: Post procedure Patient Education: (Informational booklet, instructions, etc) given at today's appointment: Yes .ED:Patient Education: Y Plan at next visit: X-rays (AP & Lateral) lumbar spine Medications Reviewed: YES In our visit today Ms. Alonzo and I have had a chance to go over my understanding of the patient's current condition, the natural course history without intervention and various interventional options. Questions were invited and answered, and the patient wishes to proceed as outlined above. I will be sure to keep you updated afterMsCr Alonzo returns here for further follow-up. Thank you again for your referral. Please do not hesitate to contact me if you have any further questions. Signed and authenticated by: Ruperto Durant [facility] [address] [place] [address] This message is confidential, intended only for the named recipient(s) and may contain information that is privileged or exempt from disclosure under applicable law. If you are not the intended recipient(s), you are notified that the dissemination, distribution or copying of this information is strictly prohibited. If you received this message in error, please notify the sender then delete this message. Patient verbalizes understanding of the information discussed. The above note was initiated by Velma Nolan, physician recording physical therapist assistant for Dr. Ruperto Mix. This note has been reviewed by Dr. Mix, who has made his personal changes and impressions for this document. CC: Uriah Pang D.O. # SIGNED BY Ruperto Mix ([facility])06/03/2023 02:35PM Past Medical History Past Medical History: Hypertension, Thyroid Disorder Additional Past Medical History / Comment(s): MIGRAINES, PAST HX ASTHMA, BACK PAIN. History of Any Multi-Drug Resistant Organisms: None Reported Past Surgical History: Bariatric Surgery, Orthopedic Surgery, Uterine Ablation Additional Past Surgical History / Comment(s): ARTHROSCOPY RIGHT KNEE., SLEEVE GASTRECTOMY (2014 Dr Donohue) Past Anesthesia/Blood Transfusion Reactions: No Reported Reaction Past Psychological History: Anxiety, Depression Smoking Status: Never smoker Past Alcohol Use History: Rare Past Drug Use History: None Reported - Past Family History Sister(s) Family Medical History: Deep Vein Thrombosis (DVT) Medications and Allergies Home Medications Medication Instructions Recorded Confirmed Type Citalopram Hydrobromide [CeleXA] 20 mg PO DAILY 02/07/14 06/05/23 History Losartan [Cozaar] 50 mg PO QAM 09/25/16 06/05/23 History Levothyroxine Sodium [Synthroid] 100 mcg PO DAILY 03/03/19 06/05/23 History Multivitamins, Thera [Multivitamin 1 tab PO DAILY 10/26/19 06/05/23 History (formulary)] Amitriptyline HCl [Elavil] 10 mg PO DAILY 06/05/23 06/05/23 History Cetirizine HCl [Zyrtec] 10 mg PO DAILY 06/05/23 06/05/23 History Cholecalciferol (Vitamin D3) 1,250 mcg PO WEEKLY 06/05/23 06/05/23 History [Vitamin D3 (1250 Mcg = 50,000 Iu)] Cyanocobalamin [Vitamin B-12 1,000 mcg SQ WEEKLY 06/05/23 06/05/23 History Injection] Gabapentin [Neurontin] 100 mg PO BID 06/05/23 06/05/23 History Ubidecarenone [Co Q-10] 100 mg PO DAILY 06/05/23 06/05/23 History Allergies Allergy/AdvReac Type Severity Reaction Status Date / Time levofloxacin [From Levaquin] Allergy Rash/Hives Verified 06/05/23 15:37 Physical Examination Osteopathic Statement: *. No significant issues noted on an osteopathic structural exam other than those noted in the History and Physical/Consult.
[~2023-06-09 09:07] MED LIST changes: -LACTATED RINGERS 1,000 ML IV SCH; +LIDOCAINE 1% (10MG/ML) FOR IV START INTRADERMA PRN; +METOCLOPRAMIDE 5 MG/ML 2 ML VIAL IVP PRN; +ONDANSETRON 4 MG/2 ML VIAL IVP PRN; +TRANEXAMIC 1,000 MG/100ML-NACL 1,000 MG in SALINE 1 100ML.BAG IVPB PRN
[2023-06-09] MEDS: LACTATED RINGERS 1,000 ML IV SCH (09:17)
[2023-06-09] MEDS: DEXAMETHASONE SOD PHOSPHATE 4 MG/ML 1 ML VIAL IV ONE (09:44)
[2023-06-09] MEDS: ACETAMINOPHEN TAB 500 MG TAB PO PRN (09:44)
[2023-06-09] MEDS: GABAPENTIN 300 MG CAP PO PRN (09:44)
[2023-06-09] MEDS: ONDANSETRON 4 MG/2 ML VIAL IVP ONE (09:45)
--- NOTE | 2023-06-09 10:01 | P.ANPRN ---
Procedure Note - Anesthesia - Invasive Line Left Arterial Line Time Out Performed: Yes Date of Procedure: 06/09/23 Time of Procedure: 09:45 Location of Patient: PreOp Preparation: Sterile Prep Arterial Line Location: Radial Ultrasound Used: No Purpose - Visualization and Identification of Vasculature: No Needle Guage: 22G Narrative: Central line placement per sterile protocol utilized. Seldinger technique. AttemptX1 , by LEADITE WORKER
[2023-06-09] MEDS ORDERED: fentaNYL (PF) 50 MCG/ML 2 ML AMP ONE (10:02)
[2023-06-09] MEDS ORDERED: LIDOCAINE 1% INJ 10MG/ML (20 ML MDV) ONE (10:02)
[2023-06-09] MEDS ORDERED: GLYCOPYRROLATE 0.2 MG/ML 2 ML VIAL ONE (10:02)
[2023-06-09] MEDS ORDERED: ROCURONIUM 10 MG/ML (5 ML VIAL) IV ONE (10:02)
[2023-06-09] MEDS ORDERED: PHENYLEPHRINE 10 MG/ML VIAL ONE (10:02)
[2023-06-09] MEDS ORDERED: NEOSTIGMINE 1 MG/ML 10 ML VIAL ONE (10:02)
[2023-06-09] MEDS ORDERED: ePHEDrine 50 MG/ML 1 ML VIAL ONE (10:02)
[2023-06-09] MEDS ORDERED: TRANEXAMIC 1,000 MG/100ML-NACL PREMIX BAG ONE (10:02)
[2023-06-09] MEDS ORDERED: PROPOFOL 10 MG/ML 20 ML VIAL IV ONE (10:02)
[2023-06-09] MEDS ORDERED: SUCCINYLCHOLINE CHLORIDE 200 MG/10 ML VIAL IV ONE (10:02)
[2023-06-09] MEDS ORDERED: MIDAZOLAM 2 MG/2 ML VIAL ONE (10:02)
[2023-06-09] MEDS: THROMBIN (BOVINE) 5,000 UNIT VIAL TOPICAL ONE (10:05)
[2023-06-09] MEDS: GELATIN SPONGE,ABSORB (LARGE) 1 EACH SPONGE TOPICAL ONE (10:05)
[2023-06-09] MEDS: ceFAZolin 3,000 MG in SODIUM CHLORIDE 0.9% IRRIGATIO 3,000 ML IRRIGATION ONE (10:15)
[2023-06-09] MEDS: GENTAMICIN 80 MG in SODIUM CHLORIDE 0.9% IRRIGATIO 3,000 ML IRRIGATION ONE (10:15)
[2023-06-09] MEDS: VANCOMYCIN 1,000 MG VIAL MISCELLANE ONE (12:53)
[2023-06-09] MEDS: LACTATED RINGERS 1,000 ML IV ONE (13:06)
[2023-06-09] MEDS ORDERED: CYCLOBENZAPRINE 5 MG TAB PO PRN (14:17)
[2023-06-09] MEDS ORDERED: HYDROcodone/APAP 5-325MG 1 EACH TAB PO PRN (14:17)
[2023-06-09] MEDS ORDERED: SENNOSIDES-DOCUSATE SODIUM 1 EACH TAB PO PRN (14:17)
[2023-06-09] MEDS ORDERED: MAGNESIUM HYDROXIDE 2,400 MG/30 ML CUP PO PRN (14:17)
--- NOTE | 2023-06-09 14:28 | XR ---
EXAMINATION TYPE: XR lumbar spine 2 or 3V, FL guidance operating room Intraoperative/procedural fluor oscopic services were provided. Total fluoroscopy time is 1 minute 4 seconds with a total of 7 submit elijah images to PACS. Please see the operative/procedural note for further details. DAP: 18.074 Gycm2
--- NOTE | 2023-06-09 14:28 | P.OP ---
Date of Procedure: 06/09/23 Preoperative Diagnosis: 1. L5-S1 GRADE II SPONDYLOLISTHESIS 2. BILATERAL PARS DEFECTS SPONDYOLYSIS L5 3. L4-S1 SPONDYLOSIS 4. LUMBAR STENOSIS WITH RADICULOPATHY 5. LOW BACK PAIN 6. LE WEAKNESS Postoperative Diagnosis: 1. L5-S1 GRADE II SPONDYLOLISTHESIS 2. BILATERAL PARS DEFECTS SPONDYOLYSIS L5 3. L4-S1 SPONDYLOSIS 4. LUMBAR STENOSIS WITH RADICULOPATHY 5. LOW BACK PAIN 6. LE WEAKNESS Procedure(s) Performed: 1. L5-S1 INTRADISCAL 3 COLUMN OSTEOTOMY FOR DEFORMITY CORRECTION AND REDUCTION 2. L4-5, L5-S1 POSTEROLATERAL AND INTERBODY FUSION 3. SEGMENTAL INSTRUMENTATION L4-S1 4. INSERTION OF BIOMECHANICAL CAGES L4-5, L5-S1 5. USE OF ROBERTO NAVIGATION FOR SCREW PLACEMENT AND DECOMPRESSION AND OSTEOTOMY PLANNING USE OF IONM ALL SCREWS TESTING > 18 mA CPTMOD 22 THIS CASE TOOK 75% LONGER THAN EXPECTED DUE TO CORMORBID CONDITIONS, GRADE OF LISTHESIS, EXTENT OF LUMBAR DISEASE AND HIGH TECHNICALITY OF THE CASE. EXPECTED CODES: 90916, 50324, 79778, 59641, 31594, 89162, 89805 Implants: -ROBERTO EVEREST SCREW AND MANISH SYSTEM -GLOBUS SABLE CAGES 8 DEG, MED, 9-17MM X2 -MAGNATOS, AUTOGRAFT, IFACTOR, ARTHROCELL, CONTOUR Anesthesia: GETA Surgeon: Ruperto Mix Outpatient Dietitian #1: Qamar Colby (WAS PRESENT AND ASSISTED WITH ALL ASPECTS OF THE CASE FROM POSITION TO CLOSURE) Estimated Blood Loss (ml): 400 IV fluids (ml): 1,500 Urine output (ml): 450 Pathology: none sent Condition: stable Disposition: PACU Indications for Procedure: Ms. Alonzo is presenting for evaluation of low back and bilateral lower extremity pain, bilateral lower extremity numbness, tingling, and weakness. It was my pleasure to have seen and examined Ms. Alonzo. In our visit today we have had a chance to go over subjective complaints, physical examination findings and treatments including the natural course history without intervention and various interventional options. The patients imaging demonstrates: XRay Lumbar Multiview (AP, Lateral, Flexion, Extension) with AP pelvis; 5 views taken at [facility] on 03/13/23 of Lumbar Spine: Grade 2 spondylolisthesis of L5 on S1 is noted which is unstable through flexion extension. There is bilateral pars defects due to spondylolysis at L5-S1. Bilateral foraminal stenosis is noted. There is disc desiccation at L5-S1 as well secondary to the collapse as well as the spondylolysis. Facet arthropathy is noted at L5-S1 which is fairly severe due to the pars elongation and pars defects. No other lesions noted at this time. On physical exam, Ms. Alonzo demonstrates: A sharp, stabbing pain throughout the low back that radiates down into the bilateral lower extremities. The patient states that her lower extremity pain is associated with numbness and tingling bilaterally. The patient notes that er symptoms have progressively worsened over the last 3 to 4 months. The patient states that her symptoms worsen after all activity. She reports experiencing moderate to severe sleep disturbances related to her ongoing pain and associated symptoms. I have explained to the patient that as their condition progresses it will cause further neurological deficits and eventual paralysis. Based on the patients imaging, physical exam, and the rapid progression and disabling nature of their symptoms, at this time I recommend surgery in the form of a: L4-S1 decompression and fusion. I discussed the risk and benefits of this procedure at length with Ms. Alonzo. The patient agreed to considered pursuing the procedure above mentioned. Prior to surgery, she should follow up with her PCP (Cardio, ID, IM etc) for clearance. Questions were invited and answered, and the patient wishes to proceed as outlined below. Currently, I am recommendin.L4-S1 decompression and fusion Description of Procedure: L4-S1 open Decompression and fusion (PHIL, PEEWEE, REduction) The patient was seen and examined in the preoperative area. All preoperative protocols were followed. Informed consent was obtained, risks and benefits of the procedure were discussed at length. Risks including bleeding infection damage to the surrounding tissue and risk of reoperation were discussed with the patient. Risk of anesthesia up to and including was discussed with the patient. These are outlined in the risk review. They were willing to accept these risks and all the risks of surgery. The patient was given a weight-based dose of antibiotics in the form of 2 g Ancef. The patient was seen and evaluated by the anesthesia team who deemed them fit for surgery. The site was marked, the patient was willing to proceed with the procedure. The patient was transferred to the operative suite by the Department of anesthesia. They were then drifted off to sleep by the department anesthesia and GETA was performed. The patient tolerated this well. Johnston catheter was placed by nursing staff, a-traumatically. Once confirmation of lines and ventilation the patient was transferred to a prone Edson table very carefully. All bony prominences including wrists, elbows, axilla, chest, hips, and thighs, and feet were padded very well. Special attention was paid to the genitalia, and these were padded accordingly. SCDs were placed on bilateral lower extremities and were connected. Arms were well padded and placed on arm boards up and out in the 90/90 position. Once in position, again we confirmed good ventilation capabilities and that lines were running appropriately. The patients Lumbar spine was then exposed. 1010s were placed outlining the incision site. Standard alcohol was used to clean the incision site and allowed to dry. C-arm was used to needle localize the pedicles at L4-S1 and bio-shravan the patient and confirm level for incision which was marked with a skin marker. Operative briefing was performed with all teams and everyone in agreement to proceed. The patient was then prepped and draped in a normal sterile fashion. Timeout was then performed, and all parties agreed with the procedure to be performed. Midline skin incision was made over the previously bio-marked area and dissection taken down over the SP of L3-S1. L4-S1 was taken out over facet joints and TPs and a penfield 4 used to shravan the L4 pedicle. Lateral image used to confirm levels. Once confirmed, An SP clamp was used, 3D C arm spin obtained and confirmed to be accurate. Once this was confirmed screws were placed using a navigated oswaldo, navigated awl-tap and navigated putaway driver. Once screws were placed they were confirmed to be in good position using AP and Lateral fluoroscopy. The wound was then irrigated. Screws were tested and all tested above 18 mA. We then proceeded to decompression and cage placement. Attention was then turned to interbody fusion at L5-S1 and osteotomy for deformity correction. There was exuberant scar and osteophyte formation, deformity due to b/l pars defects and cystic formation around the neural elements. Bilateral laminectomy, complete facetectomy and foraminotomy performed at L5-S1 using high speed oswaldo and Kerrison rongeur. The ligamentum was removed and the dural sac decompressed. Exiting and traversing roots visualized and decompressed. Neural elements were then protected, and disc space accessed with an osteotome. Intradiscal, 3 column osteotomy, was performed under fluoroscopic guidance using an osteotome to remove the entire disc. Sequential shaving then done under lateral imaging and complete discectomy performed using phuc, pituitary and curette. Once good bleeding endplates accomplished and good height mu-ism with trials, a combination of autograft, allograft and synthetic placed anterior in the disc space. The cage was then selected and impacted into place under lateral imaging. The cage was then expanded restoring height, lordosis and alignment. The cage was backfilled with bone graft through a funnel. The neonatal intensive care nurse was removed and the area inspected. Good cage placement, stable cage and no injuries. Area was irrigated copiously, and meticulous hemostasis achieved. The tubular retractor was then removed under direct visualization. Attention was then turned to interbody fusion at L4-5. Bilateral laminectomy, complete facetectomy and foraminotomy performed at L4-5 using high speed oswaldo and Kerrison rongeur. The ligamentum was removed and the dural sac decompressed. Exiting and traversing roots visualized and decompressed. Neural elements were then protected, and disc space accessed with an osteotome. Sequential shaving then done under lateral imaging and complete discectomy performed using phuc, pituitary and curette. Once good bleeding endplates accomplished and good height mu-ism with trials, a combination of autograft, allograft and synthetic placed anterior in the disc space. The cage was then selected and impacted into place under lateral imaging. The cage was then expanded restoring height, lordosis and alignment. The cage was backfilled with bone graft through a funnel. The neonatal intensive care nurse was removed and the area inspected. Good cage placement, stable cage and no injuries. Area was irrigated copiously, and meticulous hemostasis achieved. The wound and disc spaces were irrigated and meticulous hemostasis achieved. Rods were then sized and selected and placed into S1 screws b/l. Set screws locked these in place and then sequentially reduced into L4 and L5 b/l for alignment mu-ism. This was accomplished. Set screws were then all placed and finally tightened. A cross link was selected and placed and finally tightened. Lateral image was then taken, and it was noted that the L5-S1 cage was in suboptimal position so the neonatal intensive care nurse was replaced on the cage and it was collapsed enough to reposition the cage in a good position. It was then re- expanded and had great purchase and good alignment mu-ism. Cage was tested again and was stable. Lateral and AP images confirmed. TPs were then decorticated with a high speed oswaldo. The wound was irrigated with 3L Ancef irrigation, 3L gentamicin irrigation and 3L NSS. Surgicel was placed over the dura. Autograft and MagnatOs then placed in the posterolateral gutters and impacted into place. Deep drain placed and secured to the skin. Final images confirmed good placement of hardware and good reduction of listhesis as well as mu-ism of height and lordosis. Fascia was then closed with #1 PDS. Running #1 PDS stratafix. Then Deep subq closed with 0 Vicryl. Superficial subq closed with 0 PDS stratafix and skin with jb. Wound edges approximated very well. Wound was then cleaned with alcohol and dried. Wounds dressed with Optifoam dressings. The patient was then transferred off the table back to their hospital bed a- traumatically. They were extubated by the department of anesthesia. They were then transferred to PACU in stable condition having tolerated the procedure with no complications.
[2023-06-09] MEDS: HYDROmorphone 0.5 MG/0.5 ML SYRINGE IVP PRN ×2 (14:56→18:03)
[2023-06-09] MEDS: ACETAMINOPHEN TAB 325 MG TAB PO SCH (18:02)
[2023-06-09] MEDS: GABAPENTIN 300 MG CAP PO SCH (18:03)
[2023-06-10] MEDS: LEVOTHYROXINE 100 MCG TAB PO SCH (05:24)
[2023-06-10] MEDS: HYDROmorphone 1 MG/ML 1 ML SYRINGE IVP PRN (08:12)
[2023-06-10] MEDS: LOSARTAN 50 MG TAB PO SCH (08:12)
[2023-06-10] MEDS: LORATADINE 10 MG TAB PO SCH (08:12)
[2023-06-10] MEDS: AMITRIPTYLINE HCL 10 MG TAB PO SCH (08:12)
[2023-06-10] MEDS: MULTIVITAMINS, THERA 1 EACH TAB PO SCH (08:12)
[2023-06-10] MEDS: CITALOPRAM HYDROBROMIDE 20 MG TAB PO SCH (08:13)
--- NOTE | 2023-06-10 08:17 | CT ---
EXAMINATION TYPE: CT lumbar spine wo con CT DLP: 840.2 mGycm, Automated exposure control for dose reduction was used. DATE OF EXAM: 06/10/2023 6:58 AM COMPARISON: 03/23/2023 CLINICAL INDICATION:Female, 53 years old with history of s/p L4-S1 decompr fusion; s/p L4-S1 decompr fusion TECHNIQUE: Multiple axial images were obtained from the midportion of T11 through the sacroiliac fabio nts. Soft tissue and bone windows in coronal and sagittal planes were obtained and reviewed. Contrast used:(None, if empty). Oral contrast used: (None, if empty). FINDINGS: Postsurgical changes to the lumbar spine with fixation hardware at L4, L5 and S1. Discectomy at L4-L5 and L5-S1. Hardware limits evaluation at these levels. Hardware appears intact. No evidence of fract ure. Postsurgical changes in the soft tissues with foci of gas present. Drainage catheter with tubing in t he surgical bed. Posterior back skin jb are present. Hiatal hernia with postsurgical changes to the gastric lumen. IMPRESSION: Postsurgical changes without evidence of immediate post operative complication.
--- NOTE | 2023-06-10 08:37 | P.PN ---
Subjective Progress Note Date: 06/10/23 Principal diagnosis: 1. Grade II spondylolisthesis of L5 on S1 2. L5-S1 spondylosis with stenosis 3. Bilateral lower extremity radiculopathy 4. Bilateral lower extremity weakness Patient seen and examined this morning. Patient is resting currently in bed. She reports that her pain is managed on current regimen. Her Johnston catheter was discontinued this morning patient is due to void. Surgical incision to the lumbar spine is clean dry and intact with Hemovac present with 5 mL output overnight. Patient reports that she has not been up and about since surgery. She states she is looking forward to working with physical therapy. Patient states that she notices improvement into her bilateral lower extremity symptoms since the procedure. Patient denies any numbness or tingling into the lower extremities. Continue to encourage patient to be up in chair with all meals and to work with physical therapy. Utilize incentive spirometer while awake. No acute concerns at this time. Objective - Vital Signs Vital signs: Vital Signs Temp 97.6 F 06/10/23 01:15 Pulse 71 06/10/23 01:15 Resp 18 06/10/23 01:15 BP 128/72 06/10/23 01:15 Pulse Ox 98 06/10/23 01:15 FiO2 Intake & Output 06/09/23 06/10/23 06/10/23 18:59 06:59 18:59 Intake Total 2001 Output Total 1050 1005 Balance 952 -1005 Weight 75.3 kg Intake: IV 2001 Output: Drainage 5 Lower Back 5 Urine 700 1000 Uretheral (Johnston) 500 Estimated Blood Loss 350 Other: Voiding Method Indwelling Catheter - Exam Physical Examination General: The patient is awake and alert, in no acute distress Skin: Skin is warm and dry with no obvious rashes or lesions. Surgical incision to the lumbar spine, dressings are clean dry and intact. Hemovac is present with 5 mL output overnight. Eye: Pupils are equal, round and reactive to light, extra-ocular movements are intact; there is normal conjunctiva bilaterally. Neck: The neck is supple, there is no tenderness and ROM intact. Cardiovascular: There is a regular rate and rhythm. No murmur, rub or gallop is appreciated. Respiratory: Lungs are clear to auscultation, respirations are non-labored, breath sounds are equal. Gastrointestinal: Soft, non-distended, non-tender abdomen. Back: There is no tenderness to palpation in the midline, paralumbar, parathoracic or buttocks region. There is no obvious deformity . Musculoskeletal: ROM limited secondary to pain and stiffness from surgical procedure. Muscle strength in all major muscle groups of bilateral upper extremities 5/5, bilateral lower extremities 4/5. Neurological: CN 2-12 intact. There are no obvious motor or sensory deficits. Movement and coordination equal and intact. Sensory exam to light touch intact C5-T1 and intact from L2-S1. Reflexes 2/4 in bilateral upper and lower extremities. Negative Hoffmans, babinski, and clonus signs. Psychiatric: Cooperative, appropriate mood & affect, normal judgment. Assessment and Plan Assessment: Postop day 1: L4-S1 decompression and fusion 1. Grade II spondylolisthesis of L5 on S1 2. L5-S1 spondylosis with stenosis 3. Bilateral lower extremity radiculopathy 4. Bilateral lower extremity weakness Plan: -Appreciate service consultant and team management. -Activity: Ambulate QID, OOB all meals, up and about, limit lifting bending twisting to less than 5 lbs. Use walker or cane if needed for stability. -Daily PT/OT, increase ambulation strength and balance. -Brace when up and about, not needed in bed or chair -Patient reports spouse is to bring brace this morning 06/10/23 -Pain control: Adequate at this time -Meds: reviewed -GI ppx: senna, Miralax -DVT PPX: OK to restart Heparin tonight -Hygiene: Shower today. Maintain dressing clean and dry. Meticulous cleaning after BMs away from the incision site -Drains: Maintain for now. Continue to monitor and record output q shift. -Encourage IS 10x/hr -Dispo: Anticipate discharge home tomorrow with homecare *I reviewed and discussed this case with my attending Dr. Mix, whom has reviewed this chart and films and is in agreement with assessment and plan of ca re as outlined above. I have personally seen and examined the patient, performed the documentation and the assessment and plan as written. Number of minutes spent on the visit: 20m.
[2023-06-10] MEDS ORDERED: NON FORMULARY DRUG (Ubidecarenone [Co Q-10] 30 MG Capsule) PO SCH (09:00)
--- NOTE | 2023-06-10 10:18 | P.CONS ---
History of Present Illness - Reason for Consult Consult date: 06/10/23 Medical management hypertension, asthma Requesting physician: Ruperto Mix - Chief Complaint Bilateral lower extremity radiculopathy with weakness, status post L4-S1 de - History of Present Illness This is a 53-year-old female with past medical history significant for h ypertension,hypothyroidism, asthma, sleeve gastrectomy migraines, anxiety, depression,admitted with bilateral lower extremity radiculopathy and weakness, L5-S1 spondylosis with stenosis, grade 2 spondylosthesis of L5 on S1 status post L4-S1 decompression and fusion. Tolerated procedure well. Pain controlled. Denies numbness or tingling. Has not yet been out of bed, PT pending. Denies cough, chest pain or increased shortness of breath. Currently requiring 2 L nasal cannula O2 to maintain O2 sats in the high 90s. Passing flatus. Afebrile, normal WBC. Johnston catheter recently DC'd, spontaneous void pending. Review of Systems Constitutional: Denied any fever or chills. Cardio vascular: denied any chest pain, palpitations Gastrointestinal denied any nausea vomiting Pulmonary: Denied any shortness of breath cough Neurologic denied any new focal deficits. ROS Statement: Those systems with pertinent positive or pertinent negative responses have been documented in the HPI. ROS Other: All systems not noted in ROS Statement are negative. Past Medical History Past Medical History: Hypertension, Thyroid Disorder Additional Past Medical History / Comment(s): MIGRAINES, PAST HX ASTHMA, BACK PAIN. History of Any Multi-Drug Resistant Organisms: None Reported Past Surgical History: Bariatric Surgery, Orthopedic Surgery, Uterine Ablation Additional Past Surgical History / Comment(s): ARTHROSCOPY RIGHT KNEE., SLEEVE GASTRECTOMY (2014 Dr Donohue) Past Anesthesia/Blood Transfusion Reactions: No Reported Reaction Past Psychological History: Anxiety, Depression Smoking Status: Never smoker Past Alcohol Use History: Rare Past Drug Use History: None Reported - Past Family History Sister(s) Family Medical History: Deep Vein Thrombosis (DVT) Medications and Allergies Home Medications Medication Instructions Recorded Confirmed Type Citalopram Hydrobromide [CeleXA] 20 mg PO DAILY 02/07/14 06/09/23 History Losartan [Cozaar] 50 mg PO QAM 09/25/16 06/09/23 History Levothyroxine Sodium [Synthroid] 100 mcg PO DAILY 03/03/19 06/09/23 History Multivitamins, Thera [Multivitamin 1 tab PO DAILY 10/26/19 06/09/23 History (formulary)] Amitriptyline HCl [Elavil] 10 mg PO DAILY 06/05/23 06/09/23 History Cetirizine HCl [Zyrtec] 10 mg PO DAILY 06/05/23 06/09/23 History Cholecalciferol (Vitamin D3) 1,250 mcg PO WEEKLY 06/05/23 06/09/23 History [Vitamin D3 (1250 Mcg = 50,000 Iu)] Cyanocobalamin [Vitamin B-12 1,000 mcg SQ WEEKLY 06/05/23 06/09/23 History Injection] Gabapentin [Neurontin] 100 mg PO BID 06/05/23 06/09/23 History Ubidecarenone [Co Q-10] 100 mg PO DAILY 06/05/23 06/09/23 History Allergies Allergy/AdvReac Type Severity Reaction Status Date / Time levofloxacin [From Levaquin] Allergy Rash/Hives Verified 06/09/23 09:31 Physical Exam Vitals: Vital Signs Temp Pulse Resp BP Pulse Ox 06/10/23 08:13 76 17 06/10/23 08:00 98.5 F 76 17 119/72 98 06/10/23 01:15 97.6 F 71 18 128/72 98 06/09/23 19:15 98.0 F 75 18 109/65 98 06/09/23 18:31 62 112/76 94 L 06/09/23 18:16 64 124/78 98 06/09/23 18:01 69 125/81 97 06/09/23 17:46 65 120/75 98 06/09/23 17:31 64 119/74 97 06/09/23 17:16 65 112/71 97 06/09/23 17:01 62 105/67 93 L 06/09/23 16:46 97.5 F L 65 19 113/71 98 06/09/23 16:05 59 L 16 116/61 95 06/09/23 15:50 60 16 105/58 93 L 06/09/23 15:35 62 16 108/57 96 06/09/23 15:20 58 L 16 101/51 95 06/09/23 15:05 54 L 16 109/57 95 06/09/23 14:51 80 16 103/57 97 06/09/23 14:36 64 16 114/57 93 L 06/09/23 14:21 98.4 F 79 16 121/58 100 Intake and Output 06/09/23 06/10/23 06/10/23 22:59 06:59 14:59 Output Total 450 1005 Balance -450 -1005 Output: Drainage 5 Lower Back 5 Urine 450 1000 Uretheral (Johnston) 500 Other: Voiding Method Indwelling Catheter Toilet Weight 75.3 kg PHYSICAL EXAM: VITAL SIGNS: [As above] GENERAL: Alert and oriented x 3, sitting up in bed, no acute distress HEENT: Normocephalic, atraumatic ,conjunctivae normal. eyes normal. mmm. NECK: Supple, no JVD. No thyroid enlargement. No LNs CARDIOVASCULAR: S1, S2 regular.. No murmur RESPIRATION: Unlabored, equal air entry, essentially clear to auscultation with bilateral bases diminished . ABDOMEN: Soft, nondistended, nontender . No guarding. no masses palpable. No ascites, No hepatosplenomegaly.Bowel sounds heard. LEGS: No edema. no swelling, no clubbing, no calf tenderness, positive DP pulses. NERVOUS SYSTEM: Cranial N 2-12 grossly normal. No focal deficits. Strength and sensation grossly intact. Skin: Warm and dry, no rash Results CBC & Chem 7: 06/10/23 06:32 Assessment and Plan Assessment: Bilateral lower extremity radiculopathy and weakness, L5-S1 spondylosis with stenosis, grade 2 spondylosthesis of L5 on S1 ,status post L4-S1 decompression and fusion. Atelectasis, postoperative, expected outcome History of asthma, stable History of sleeve gastrectomy 2015 Hypertension Hypothyroidism Plan: Continue on current medication regimen ,monitoring and symptomatic treatment. Aggressive pulmonary toileting with incentive spirometer reinforced. O2 weaning in progress with prn nebulized bronchodilators while requiring O2. PT pending. PPI ordered for GI prophylaxis. Pain management and DVT prophylaxis as per primary. thank you for the consult. The impression and plan of care has been dictated as directed. : I performed a history and examination of this patient, discussed the same with the dictator. I agree with the dictator's note ,documented as a scribe. Any additional findings or plans will be noted.
[2023-06-10] MEDS ORDERED: IPRATROPIUM-ALBUTEROL 3 ML NEB INHALATION PRN (10:21)
[2023-06-10 11:06] LABS: Basophils # (A) 0.01 X 10*3/uL (0.00-0.10); Basophils % (A) 0.1 %; Eosinophils # (A) 0 X 10*3/uL (0.04-0.35); Eosinophils % (A) 0 %; HCT 32.3 % (37.2-46.3); HGB 11.1 g/dL (12.0-15.0); Lymphocytes # (A) 1.25 X 10*3/uL (0.90-5.00); Lymphocytes % (A) 13.1 %; MCH 29.9 pg (27.0-32.0); MCHC 34.4 g/dL (32.0-37.0); MCV 87.1 FL (80.0-97.0); Mean Platelet Volume 10.5 FL (9.5-12.2); Monocytes # (A) 0.76 X 10*3/uL (0.20-1.00); NRBC Per 100 WBC 0 X 10*3/uL (0.00-0.01); Neutrophils # (A) 7.48 X 10*3/uL (1.80-7.70); Neutrophils % (A) 78.5 %; Platelet Count 181 X 10*3/uL (140-440); RBC 3.71 X 10*6/uL (4.10-5.20); WBC 9.53 X 10*3/uL (4.50-10.00)
[2023-06-10] MEDS: PANTOPRAZOLE 40 MG/10 ML VIAL IVP SCH (11:50)
[2023-06-10 12:32] LABS: Blood Urea Nitrogen 9.1 mg/dL (9.0-27.0); Calcium 8.8 mg/dL (8.7-10.3); Carbon Dioxide 24.9 mmol/L (21.6-31.8); Chloride 100 mmol/L (96-109); Glucose 100 mg/dL (70-110); Potassium 3.6 mmol/L (3.5-5.5); Sodium 135 mmol/L (135-145)
[2023-06-10] MEDS: HYDROcodone/APAP 10-325MG 1 EACH TAB PO PRN (20:12)
--- NOTE | 2023-06-11 07:43 | P.DS ---
Providers Date of admission: 06/10/23 14:12 Expected date of discharge: 06/11/23 Attending physician: Ruperto Mix DO Consults: 06/09/23 14:19 Consult Physician Routine Consulting Provider: Uriah Pang Reason/Comments: Medical Management s/p L4-S1 decompr fusion Do you want consulting provider notified?: Yes Primary care physician: Uriah Pang Hospital Course: Hospital Course: The patient was evaluated preoperatively and found to have the diagnosis of lumbar spondylolisthesis. They underwent appropriate preoperative care and were willing to undergo the intended procedure. They underwent a successful L4-S1 decompression and fusion, were recovered appropriately and sent to the floor. While on the floor they worked with physical therapy, occupational therapy and nursing to enhance their recovery experience. Their pain was well controlled through their stay and they were started on appropriate medications, DVT ppx m odalities, activity and dietary needs. Daily labs were monitored closely, and transfusions were only used when necessary. Medicine as well as other consulting services have made their input and have helped with our team approach and multidisciplinary care. PT milestones have been met and passed and they have made the recommendation of home with home care for this patient and treating providers agree with this care path. The patient will be discharged home with appropriate medications, instructions and follow-up information and in stable condition. Patient Condition at Discharge: Good Plan - Discharge Summary Discharge Rx Participant: Yes New Discharge Prescriptions: New cefaDROXiL [Duricef] 500 mg PO Q12HR #10 cap Cyclobenzaprine [Flexeril] 5 mg PO TID PRN #40 tablet PRN Reason: Muscle Spasm Gabapentin 300 mg PO TID #30 cap HYDROcodone/APAP 10-325MG [Westfir 10-325] 1 tab PO Q4-6H PRN #42 tab PRN Reason: Pain Sennosides/Docusate Sodium [Senna Plus 8.6-50 mg Softgel] 1 each PO DAILY PRN #20 capsule PRN Reason: Constipation No Action Citalopram Hydrobromide [CeleXA] 20 mg PO DAILY Losartan [Cozaar] 50 mg PO QAM Levothyroxine Sodium [Synthroid] 100 mcg PO DAILY Multivitamins, Thera [Multivitamin (formulary)] 1 tab PO DAILY Cyanocobalamin [Vitamin B-12 Injection] 1,000 mcg SQ WEEKLY Ubidecarenone [Co Q-10] 100 mg PO DAILY Amitriptyline HCl [Elavil] 10 mg PO DAILY Cetirizine HCl [Zyrtec] 10 mg PO DAILY Gabapentin [Neurontin] 100 mg PO BID Cholecalciferol (Vitamin D3) [Vitamin D3 (1250 Mcg = 50,000 Iu)] 1,250 mcg PO WEEKLY Discharge Medication List Citalopram Hydrobromide [CeleXA] 20 mg PO DAILY 02/07/14 [History] Losartan [Cozaar] 50 mg PO QAM 09/25/16 [History] Levothyroxine Sodium [Synthroid] 100 mcg PO DAILY 03/03/19 [History] Multivitamins, Thera [Multivitamin (formulary)] 1 tab PO DAILY 10/26/19 [History] Amitriptyline HCl [Elavil] 10 mg PO DAILY 06/05/23 [History] Cetirizine HCl [Zyrtec] 10 mg PO DAILY 06/05/23 [History] Cholecalciferol (Vitamin D3) [Vitamin D3 (1250 Mcg = 50,000 Iu)] 1,250 mcg PO WEEKLY 06/05/23 [History] Cyanocobalamin [Vitamin B-12 Injection] 1,000 mcg SQ WEEKLY 06/05/23 [History] Gabapentin [Neurontin] 100 mg PO BID 06/05/23 [History] Ubidecarenone [Co Q-10] 100 mg PO DAILY 06/05/23 [History] Cyclobenzaprine [Flexeril] 5 mg PO TID PRN #40 tablet 06/11/23 [Rx] Gabapentin 300 mg PO TID #30 cap 06/11/23 [Rx] HYDROcodone/APAP 10-325MG [Westfir 10-325] 1 tab PO Q4-6H PRN #42 tab 06/11/23 [Rx] Sennosides/Docusate Sodium [Senna Plus 8.6-50 mg Softgel] 1 each PO DAILY PRN #20 capsule 06/11/23 [Rx] cefaDROXiL [Duricef] 500 mg PO Q12HR #10 cap 06/11/23 [Rx] Follow up Appointment(s)/Referral(s): Ruperto Mix DO [Doctor of Osteopathic Medicine] - 2 Weeks Uriah Pang DO [Primary Care Provider] - 1 Week Activity/Diet/Wound Care/Special Instructions: Spine Discharge and Recovery Instructions Date of Surgery: 06/09/2023 Diagnosis: Lumbar spondylolisthesis Procedure: L4-S1 decompression fusion Medications: See medication list All medication refills should be obtained through your primary care doctor or your clinic spine surgeon. Please discuss prescription refills at your follow up appointment. Do not call the hospital for medication refills. Activity: Encourage ambulation with assist of walker, Up and about 6-8x daily PT/OT daily work on balance, strength and mobility Up in chair with all meals Shower daily Brace: Use brace when up and about, do not wear in bed or shower Dressing: Leave your dressing in place for a total of 3 days post operatively. Then you may remove your dressing and leave open to air. Keep the area clean and if not able to keep area clean, then cover with sterile gauze and tape. Showering: You may shower 3 days after your procedure allowing soap and water to run over incision. Do not scrub. Do not soak. Blot dry. Follow up: Please confirm a follow up appointment with your surgeon 2 weeks post oper atively. Please make an appointment to follow up with your PCP in 1-2 weeks after surgery for evaluation 3 phase, 3-week plan POST OP WEEKS 1-3 1. Lifting/carrying/pushing/pulling limited to less than 5 pounds. 2. Do not sit for longer than 15 minutes at one time. Get up and walk around. Prolonged sitting is NOT advised. If you lay down, see if you can tolerate laying down on you front (belly side) 3. Walk for periods of 15 minutes = 1 mile but no longer; do it multiple times times each day. 4. Ice your low back after activity. POST OP WEEKS 3-6 1. Lifting limited to less than 20 pounds. 2. Do not sit for longer than 30 minutes at a time. Frequently change positions. Use a sit-to stand workstation or take frequent breaks from sitting if you have returned to work. 3. Walk for 30 minutes each day. If possible, do these three or more times a day POST OP WEEKS 6+ At your 6-week appointment we will give you a physical therapy referral to focus on a core stabilization and strengthening program. You should also work on leg & buttock strengthening, hamstring & quadriceps stretching, and continue a low impact aerobic activity program such as swimming, walking, or riding a stationary bicycle. During the initial 6 weeks after your surgery, you are at the highest risk of re-injuring your spine. You should generally avoid BLTs (bending, lifting and twisting combination motions) and follow the above guidelines to reduce the chance of reinjury. You can anticipate post op appointments in our office at approximately 3 weeks and 6 weeks after your surgery. INCISION CARE: If your incision is not draining you do NOT need to cover it with a dressing. Keep your incision clean, dry and intact. In most cases, we apply skin glue, jb or sutures to the incision at the time of surgery. This will be like a crust or have the appearance of a scab and will fall off in time on its own. The stitches or jb need to be removed at 3 weeks post op appointment. You may begin to shower 3 days after surgery (this allows the glue to bowman well). However, please avoid scrubbing the incision site or peeling off any of the skin glue. This will ensure optimal healing of your incision. Also, during this time avoid soaking the incision area in water - this includes swimming pools, hot tubs or baths. No ointments, lotions or oil s on the incision until your surgeon allows. Leave jb, sutures or glue in place. Neurological dysfunction that comes on suddenly can also be a sign of a stroke. Below some common symptoms of a stroke are listed: B - balance difficulty such as sudden onset walking or leaning to one side - NEW E - eye problem such as sudden double vision or trouble seeing on one side - NEW F - Facial weakness or numbness on one side - NEW A - Arm or leg weakness or numbness on one side - NEW S - Slurred speech or difficulty with word finding - NEW T - Time is BRAIN! Call 911 as soon as you recognize these symptoms Diet: Consume a regular diet rich in vegetables and lean protein such as chicken or fish. You should consume in a ratio of approximately 20% fats|40% carbohydrates|40%protein. Vegetables, sweet potatoes, brown rice or quinoa are examples of good carbohydrates. Chips, white bread, cookies and sweets/sugar are examples of bad carbohydrates. Limit your bad carbs, go wild with good carbs. "Life's Simple 7" Guidelines as per [place] [employer] These will help you reclaim your life after surgery and plater helper in your recovery, keeping in mind your restrictions. (1) Get Active. Physical activity can help people lose weight, control high blood pressure and cholesterol, feel emotionally better, and sleep better. (2) Control Cholesterol. Avoid a diet high in saturated fat, trans fat, & cholesterol. Limit whole milk & cream, ice cream, butter, egg yolks, processed meats (like sausage and hot dogs), and fatty meats. Choose healthy foods that are low in saturated fat, trans fat and cholesterol which include: Fruits and vegetables, fiber rich grain products (like whole grain pasta and brown rice), lean meat such as chicken, fish, nuts, seeds, and legumes. (3) Eat Better. Eat small portions. Shop at the grocery with a list and do not stray from it. Tips for a healthy diet include: Limit sodium intake to less than 1500mg daily, avoid prepackaged, processed, and fast foods, choose a diet rich in fruits, vegetables, and whole grain, high fiber foods, and limit saturated & cholesterol in your diet. (4) Manage Blood Pressure. If you have high blood pressure, you should have a cuff at home so that you can check your blood pressure regularly. Be sure you have a good cuff. An arm one is generally better than a wrist one. Bring the cuff to a doctor's appointment to validate that the measurements that your cuff are taking are accurate. Take your blood pressure twice daily when you are sitting down and relaxing. Record the numbers in a log and bring this log with you to your doctors' appointments. (5) Lose Weight if your BMI is above 25. A healthy BMI is between 19-25. To calculate Your BMI, you may use a Standard BMI Calculator on the NIH BMI website: <www.nhlbi.nih.gov/guidelines/obesity/BMI/bmicalc.htm>. Weigh oneself daily. If you are overweight, set a goal to lose weight. A pound a week loss if needed is a good target. (6) Reduce Blood Sugar. Limit foods and liquids with "added sugars." (Added sugars include sucrose, fructose, glucose, maltose, dextrose, high fructose corn syrup, corn syrup, concentrated fruit juice and honey). (7) Stop Smoking. If you smoke, quitting smoking is one of the best things that you can do for your health. Smoking increases your risk of heart attack, stroke, and peripheral vascular disease, which is a build-up of plaque in your arteries. Please discard all the cigarettes and lighters in your house. Have a plan for what you will do when you have the urge to smoke. Direct and second- hand smoke shortens your life as well as the lives of your family, friends and others around you. For your health and the health of those around you, please consider quitting! Proper Bending Body Mechanics: Maintain a wide stance with one foot slightly in front of the other. Keep your back straight. Bend utilizing the strength in your hips and knees. Do not bend at the waist. Maintain the lifted object at your waist-level close to your body. Avoid lifting weight that causes immediately pain or pain anywhere in the body afterwards. Smoking/Nicotine If there was ever one thing that you could do to increase your overall health, decrease your risk of cardiovascular problems by about 39% the second you make the choice, it is to STOP SMOKING. Your body's most instant gratification is the second you stop smoking. We have all heard the studies, read the articles but it is true, smoking is extremely bad for your overall health, and moreover it is detrimental to your bone health. Nicotine, IN ANY FORM, kills bone cells, prevents your body from healing fractures, and significantly prolongs healing after surgery. In spine surgery specifically, it increases your risk of not healing your bones to create a fusion and increases your risk of having a revision surgery due to this up to 60%. I know it is hard. I know it feels impossible. But there are ways. Take control of your life. We are here to help you through it. And when you are ready, ask us and we can direct you to help if you desire. Use the START Plan to Quit Smoking (please visit the [facility]gu[facility].org website listed below for more information): S = Set a quit date. Choose a date within the next 2 weeks, so you have enough time to prepare without losing your motivation to quit. If you mainly smoke at work, quit on the weekend, so you have a few days to adjust to the change. T = Tell family, friends, and co-workers that you plan to quit. Let your friends and family in on your plan to quit smoking and tell them you need their support and encouragement to stop. Look for a quit winter who wants to stop smoking as well. You can help each other get through the rough times. A = Anticipate and plan for the challenges you'll face while quitting. Most people who begin smoking again do so within the first 3 months. You can help yourself make it through by preparing ahead for common challenges, such as nicotine withdrawal and cigarette cravings. R = Remove cigarettes and other tobacco products from your home, car, and work. Throw away all your cigarettes (no emergency pack!), lighters, ashtrays, and matches. Wash your clothes and freshen up anything that smells like smoke. Shampoo your car, clean your drapes and carpet, and steam your furniture. T = Talk to your doctor about getting help to quit. Your doctor can prescribe medication to help with withdrawal and suggest other alternatives. If you can't see a doctor, you can get many products over the counter at your local pharmacy or grocery store, including the nicotine patch, nicotine lozenges, and nicotine gum. Resources for Quitting Smoking: <https://www.[place].gov/documents/[facility]/Quit_Tobacco_Resources_for_patients_313 480_7.pdf> Supplementation: Take recommended dosages of Vitamin D and Calcium to help fortify your bones and help them to heal. See your health maintenance packet for dosages and recommended levels. DVT/VTE prophylaxis: You will be given compression stockings from the hospital. Wear these daily for the first two weeks after surgery. You may take them off at night. You may be prescribed a medication to help thin your blood. Take this as directed. If you are not prescribed this medication, early and frequent ambulation has been shown to be the best prophylaxis to deep vein thrombosis and sequelae related to this event. Discharge Disposition: HOME WITH HOME HEALTH SERVICES
--- NOTE | 2023-06-11 07:45 | P.PN ---
Subjective Progress Note Date: 06/11/23 Principal diagnosis: 1. Grade II spondylolisthesis of L5 on S1 2. L5-S1 spondylosis with stenosis 3. Bilateral lower extremity radiculopathy 4. Bilateral lower extremity weakness Patient seen and examined this morning. Patient is sitting up in chair. Patient reports that her pain has been managed on current regimen. Patient reports improvement in her bilateral lower extremities since the procedure. Surgical incision to the lumbar spine as well approximated with jb intact. Hemovac drain has been removed and new surgical dressing applied. Patient reports she has been ambulatory within room with her walker. LSO brace is at bedside. Patient is looking forward to going home later today. Discharge instructions have been reviewed. No acute concerns. Objective - Vital Signs Vital signs: Vital Signs Temp 99.0 F 06/11/23 01:25 Pulse 101 H 06/11/23 01:25 Resp 13 06/11/23 01:25 BP 100/63 06/11/23 01:25 Pulse Ox 91 L 06/11/23 01:25 FiO2 Intake & Output 06/10/23 06/11/23 06/11/23 18:59 06:59 18:59 Intake Total 354 Output Total 810 0 Balance -456 0 Intake: Oral 354 Output: Drainage 10 0 Lower Back 10 0 Urine 800 Straight 800 Other: Voiding Method Toilet Toilet # Voids 3 - Exam Physical Examination General: The patient is awake and alert, in no acute distress Skin: Skin is warm and dry with no obvious rashes or lesions. Surgical incision to the lumbar spine, images are well approximated with jb intact. Hemovac drain has been removed and new surgical dressing applied. Eye: Pupils are equal, round and reactive to light, extra-ocular movements are intact; there is normal conjunctiva bilaterally. Neck: The neck is supple, there is no tenderness and ROM intact. Cardiovascular: There is a regular rate and rhythm. No murmur, rub or gallop is appreciated. Respiratory: Lungs are clear to auscultation, respirations are non-labored, breath sounds are equal. Gastrointestinal: Soft, non-distended, non-tender abdomen. Back: There is no tenderness to palpation in the midline, paralumbar, parathoracic or buttocks region. There is no obvious deformity . Musculoskeletal: ROM limited secondary to pain and stiffness from surgical procedure. Muscle strength in all major muscle groups of bilateral upper extremities 5/5, bilateral lower extremities 4/5. Neurological: CN 2-12 intact. There are no obvious motor or sensory deficits. Movement and coordination equal and intact. Sensory exam to light touch intact C5-T1 and intact from L2-S1. Reflexes 2/4 in bilateral upper and lower extremities. Negative Hoffmans, babinski, and clonus signs. Psychiatric: Cooperative, appropriate mood & affect, normal judgment. - Labs CBC & Chem 7: 06/10/23 06:32 06/10/23 06:32 Labs: Abnormal Lab Results - Last 24 Hours (Table) 06/10/23 06/10/23 Range/Units 06:32 06:32 RBC 3.71 L (4.10-5.20) X 10*6/uL Hgb 11.1 L (12.0-15.0) g/dL Hct 32.3 L (37.2-46.3) % Eosinophils # 0 L (0.04-0.35) X 10*3/uL Creatinine 0.5 L (0.6-1.5) mg/dL Assessment and Plan Assessment: Postop day 2: L4-S1 decompression and fusion 1. Grade II spondylolisthesis of L5 on S1 2. L5-S1 spondylosis with stenosis 3. Bilateral lower extremity radiculopathy 4. Bilateral lower extremity weakness Plan: -Appreciate air quality consultant and team management. -Activity: Ambulate QID, OOB all meals, up and about, limit lifting bending twisting to less than 5 lbs. Use walker or cane if needed for stability. -Daily PT/OT, increase ambulation strength and balance. -Brace when up and about, not needed in bed or chair -Pain control: Adequate at this time -Meds: reviewed -GI ppx: senna, Miralax -DVT PPX: mechanical -Hygiene: Shower today. Maintain dressing clean and dry. Meticulous cleaning after BMs away from the incision site -Encourage IS 10x/hr -Dispo: Anticipate discharge home with home care today *I reviewed and discussed this case with my attending Dr. Mix, whom has reviewed this chart and films and is in agreement with assessment and plan of care as outlined above. I have personally seen and examined the patient, performed the documentation and the assessment and plan as written. Number of minutes spent on the visit: 20m.
[2023-06-11 08:19] VITALS: BP 107/68; PULSE 99; RESP 17; TEMP 98.9
--- NOTE | 2023-06-11 09:59 | P.PN ---
Subjective Progress Note Date: 06/11/23 This is a 53-year-old female with past medical history significant for hypertension,hypothyroidism, asthma, sleeve gastrectomy migraines, anxiety, depression,admitted with bilateral lower extremity radiculopathy and weakness, L5-S1 spondylosis with stenosis, grade 2 spondylosthesis of L5 on S1 status post L4-S1 decompression and fusion. Tolerated procedure well. Pain controlled. Denies numbness or tingling. Has not yet been out of bed, PT pending. Denies cough, chest pain or increased shortness of breath. Currently requiring 2 L nasal cannula O2 to maintain O2 sats in the high 90s. Passing flatus. Afebrile, normal WBC. Johnston catheter recently DC'd, spontaneous void pending. 06/11/2023 sitting up in chair, pain better controlled.. Ambulated yesterday, tolerated well, denies lightheadedness, dizziness or focal deficits. Passing flatus. Denies nausea or vomiting. Denies abdominal pain. Denies chest pain, palpitations or shortness of breath. Maintaining O2 sats in the 90s on room a ir. Objective - Vital Signs Vital signs: Vital Signs Temp 98.9 F 06/11/23 07:08 Pulse 99 06/11/23 07:08 Resp 17 06/11/23 07:08 BP 107/68 06/11/23 07:08 Pulse Ox 90 L 06/11/23 07:08 FiO2 Intake & Output 06/10/23 06/11/23 06/11/23 18:59 06:59 18:59 Intake Total 354 Output Total 810 0 Balance -456 0 Intake: Oral 354 Output: Drainage 10 0 Lower Back 10 0 Urine 800 Straight 800 Other: Voiding Method Toilet Toilet # Voids 3 - Exam PHYSICAL EXAM: VITAL SIGNS: [As above] GENERAL: Alert and oriented x 3, sitting up in chair, no acute distress HEENT: Normocephalic, atraumatic ,conjunctivae normal. eyes normal. mmm. NECK: Supple, no JVD. CARDIOVASCULAR: S1, S2 regular. No murmur RESPIRATION: Unlabored, equal air entry, essentially clear to auscultation with bilateral bases diminished . ABDOMEN: Soft, nondistended, nontender . No guarding.+BS LEGS: No edema. no swelling, no clubbing, no calf tenderness, positive DP pulses. NERVOUS SYSTEM: Cranial N 2-12 grossly normal. No focal deficits. Strength and sensation grossly intact. Skin: Warm and dry, no rash - Labs CBC & Chem 7: 06/10/23 06:32 06/10/23 06:32 Labs: Abnormal Lab Results - Last 24 Hours (Table) 06/10/23 06/10/23 Range/Units 06:32 06:32 RBC 3.71 L (4.10-5.20) X 10*6/uL Hgb 11.1 L (12.0-15.0) g/dL Hct 32.3 L (37.2-46.3) % Eosinophils # 0 L (0.04-0.35) X 10*3/uL Creatinine 0.5 L (0.6-1.5) mg/dL Assessment and Plan Assessment: Bilateral lower extremity radiculopathy and weakness, L5-S1 spondylosis with stenosis, grade 2 spondylosthesis of L5 on S1 ,status post L4-S1 decompression and fusion. Atelectasis, postoperative, expected outcome History of asthma, stable History of sleeve gastrectomy 2014 Hypertension Hypothyroidism Plan: Continue on current medication regimen ,monitoring and symptomatic treatment. Discharge planning in progress for today as per orthopedic spine. Continue aggressive pulmonary toileting with incentive spirometer reinforced. Pain management and DVT prophylaxis as per primary. Follow-up with PCP in 1 week. The impression and plan of care has been dictated as directed. : I performed a history and examination of this patient, discussed the same with the dictator. I agree with the dictator's note ,documented as a scribe. Any additional findings or plans will be noted.
[2023-06-15] MEDS ORDERED: CHOLECALCIFEROL 125 MCG (5000 IU) TABLET PO SCH (09:00)
== END 2023-06-11 14:07 | disposition home health service (06) ==
LOC: OR 09:07 → 4SSUR 14:11 → OR 06-10 14:12
PROVIDERS: ADMIT Orthopaedic Surgery; ATTEND Orthopaedic Surgery
DX: M47.27 Other spondylosis with radiculopathy, lumbosacral region (principal); M48.061 Spinal stenosis, lumbar region without neurogenic claudication; M43.17 Spondylolisthesis, lumbosacral region; M25.78 Osteophyte, vertebrae; J98.11 Atelectasis; I10 Essential (primary) hypertension; E03.9 Hypothyroidism, unspecified; J45.909 Unspecified asthma, uncomplicated; F32.A Depression, unspecified; F41.9 Anxiety disorder, unspecified; Z98.84 Bariatric surgery status; Z79.890 Hormone replacement therapy; Z79.899 Other long term (current) drug therapy; Z88.1 Allergy status to other antibiotic agents; Z56.0 Unemployment, unspecified
CPT/HCPCS: 22612; 22614; 22207; 22853 ×2; 20931; 20936; 96376 ×2; 96365; 96366; 96375 ×2; 97530; 97161; 80048; 85025; 72100; 72131; G0378 ×2; C1713; C1734; J2250; J3370; J0330; J1580; J1100; J2710; J0690 ×3; J2405; J2001; J3010; J1170 ×3; J2704; C9113 ×2; J2371